=== PATIENT | female | born 1955 | race Caucasian/White ===

== ENCOUNTER 2023-12-08 13:20 | Emergency (ER) | payer OTHER, SELFPAY ==
--- NOTE | ~2023-12-08 | XR_ITS ---
XR chest 2V Ordering provider: TYRONE Ken History: 68 years Female with . cough, fever x3 weeks, sob, hx asthma . Comparison: None. FINDINGS: MEDIASTINUM: The cardiac silhouette is not enlarged. LUNGS: No infiltrates, effusions or pneumothorax. Opacification in the posterior costophrenic angles is seen which may indicate atelectasis. OTHER: No free air under the diaphragm. IMPRESSION: Opacification in the posterior costophrenic angles which may indicate atelectasis versus pneumonia. C linical correlation advised. Reviewed, dictated and finalized at location A. IMPRESSION: Opacification in the posterior costophrenic angles which may indicate atelectas is versus pneumonia. Clinical correlation advised.
[2023-12-08 13:28] VITALS: BP 127/68; PULSE 77; RESP 18; TEMP 36.3; O2SAT 96
[2023-12-08 13:42] VITALS: BP 127/68; PULSE 77; RESP 18; TEMP 36.3; O2SAT 96
--- NOTE | 2023-12-08 13:51 | ED.URI ---
HPI - URI/Sore Throat General Chief Complaint: Upper Respiratory Infection Stated Complaint: Shortness of Breath/Cough/Fever Time Seen by Provider: 12/08/23 13:44 Source: patient and RN notes reviewed Mode of arrival: ambulatory Limitations: no limitations History of Present Illness HPI Narrative: Patient presents today with a 3 week history of cough, nasal congestion, shortness of breath with exertion. Patient also reports she has a fever every night with a T-max of 102.9?. Last fever was last evening. She has been using Tylenol and her inhalers with mild relief. History of 3 sinus surgeries in the past as well as asthma. Related Data Home Medications Medication Instructions Recorded Confirmed allopurinol 300 mg tablet mg 12/08/23 atorvastatin 20 mg tablet mg 12/08/23 budesonide-formoterol HFA 160 inhalation 12/08/23 mcg-4.5 mcg/actuation aerosol inhaler celecoxib 100 mg capsule mg 12/08/23 montelukast 10 mg tablet mg 12/08/23 Allergies Allergy/AdvReac Type Severity Reaction Status Date / Time No Known Allergies Allergy Unverified 12/08/23 13:31 Review of Systems Review of Systems: CONSTITUTIONAL: Denies body aches, chills, or sweats.+ fever EYES: Denies visual changes, redness, or discharge. ENT: Denies rhinorrhea, sore throat, or otalgia.+ congestion CARDIOVASCULAR: Denies chest pain, palpitations, or edema. RESPIRATORY: + cough, shortness of breath GASTROINTESTINAL: Denies abdominal pain, nausea, vomiting, or diarrhea. GENITOURINARY: Denies dysuria or hematuria. SKIN: Denies rash, itching, or wounds. MUSCULOSKELETAL: Denies back pain, joint pain, or myalgia. NEUROLOGIC: Denies headache, numbness, tingling, or weakness. PSYCH: Denies depression or anxiety. [facility] Past Medical History Medical History (Updated 12/08/23 @ 14:31 by Deidra Springer, BOBBIN PRESSER, ) Asthma Comments At time of signature, I have reviewed and agree with nursing past medical, surgical, social and family history unless otherwise noted. Please see nursing chart for further information. There is no relevant family history pertinent to the presenting complaint Exam Narrative: GENERAL: Mildly ill-appearing, well-nourished, and in no acute distress. HEAD: Normocephalic, atraumatic. EYES: EOMI. No redness or drainage. Conjunctivae normal. ENT: Mucous membranes pink and moist. Nares congested. No rhinorrhea. TMs normal bilaterally. Throat normal. Uvula midline. NECK: Normal AROM. Supple. No lymphadenopathy. CHEST: No respiratory distress. Inspiratory and expiratory wheezes throughout. HEART: Regular rate and rhythm. No murmur appreciated. EXTREMITIES: Normal range of motion. No edema. SKIN: Warm, dry, no rash. Capillary refill normal. Normal skin turgor. NEURO: No focal deficits. Alert and oriented x3. Gait steady. PSYCH: Normal affect. No signs of depression or anxiety. Course Course Level of Care: Express Care Visit Vital Signs Vital signs: Vital Signs Temperature 97.4 F L 12/08/23 13:28 Pulse Rate 77 12/08/23 13:28 Respiratory Rate 18 12/08/23 13:28 Blood Pressure 127/68 12/08/23 13:28 Pulse Oximetry 96 12/08/23 13:28 Oxygen Delivery Room Air 12/08/23 13:28 Temperature 97.4 F L 12/08/23 13:42 Pulse Rate 77 12/08/23 13:42 Respiratory Rate 18 12/08/23 13:42 Blood Pressure 127/68 12/08/23 13:42 Pulse Oximetry 96 12/08/23 13:42 Oxygen Delivery Room Air 12/08/23 13:42 Reviewed MDM - URI/Sore Throat MDM Narrative Medical decision making narrative: X-ray shows atelectasis versus pneumonia. Based on patient's symptoms and persistent fever, prescriptions for Augmentin and azithromycin will cover for pneumonia as well as prednisone for asthma exacerbation and cough. Patient declines prescription for cough medicine. Instructed to use nebulizer treatments for her wheezing and cough. ED precautions given. Differential Diagnosis Differential diagnosis
== END 2023-12-08 14:38 | disposition home or self-care (01) ==
PROVIDERS: Emergency Provider Nurse Practitioner; PCP Family Medicine
DX: J18.9 Pneumonia, unspecified organism (principal); J45.909 Unspecified asthma, uncomplicated
CPT/HCPCS: 71046; 99213; G0463

== ENCOUNTER 2025-02-27 13:24 | Emergency (ER) | payer OTHER, SELFPAY ==
[2025-02-27 13:36] VITALS: BP 132/62; PULSE 65; RESP 16; TEMP 36.6; O2SAT 99
--- OUTSIDE RECORDS SUMMARY | 2025-02-27 14:23 | XMS_ITS | Encounter Summary ---
Author Organization [facility] Address [address] [place] [address] Phone Care Team Providers Care Postal Support Employee Name Role Phone Brad Rivera MD Primary Care Provider [phone] Efrem Curtis MD Unavailable Rose Marie Hoang APRN, SIMULATION SOFTWARE ENGINEER Unavailable Mohamud Carrion MD Unavailable [phone] Reason for Visit * Reason Comments Medication Refill Encounter Details Date Type Department Care Team (Late st Contact Info) Description 04/10/2021 [facility]ill [facility] - [facility] [address] [place] [phone] Brad Rivera MD [address] [address] Medication Refill Social History Tobacco Use Types Packs/Day Years Used Date Smoking Tobacco: Never Smokeless Tobacco: Never Alcohol Use Standard Drinks/Week Comments Yes 0 (1 standard drink = 0.6 oz pur e alcohol) occasionally PHQ-2 Answer Date Recorded PHQ-2 Score 0 11/14/2018 Education Answer Date Recorded What is the highest level of school you have completed or the highest degree you have received? Bachelor's degree (e.g., BA, AB, BS) 11/03/2019 Comments No Sex and Gender Information Value Date Recorded Sex Assigned at Female 06/08/2023 2:00 AM CDT Legal Sex Female 7:51 PM CDT Gender Identity Female 01/16/2023 10:01 AM BUGGY RUNNER Sexual Orientation Straight 01/16/2023 10 :01 AM BUGGY RUNNER COVID-19 Exposure Response Date Recorded In the last month, have you been in contact with someone who was confirmed or suspected to have Coronavirus / COVID-19? Yes 04/02/2021 7:58 AM BUGGY RUNNER documented as of this encounter Miscellaneous Notes * Telephone Encounter - Katina Palm RN - 04/12/2021 10:44 AM CST PRN medication requires review from provider Per nursing clinical judgement, provider to review and approve the medication(s) order(s) if appropriate. Requested Prescriptions Pending Prescriptions Disp Refills albuterol 108 (90 Base) MCG/ACT Aerosol Solution [Pharmacy Med Name: ALBUTEROL HFA INH(200 PUFFS)18GM] 18 g 1 Sig: INHALE 1 TO 2 PUFFS BY MOUTH EVERY 6 HOURS NEEDED FOR COUGH Short Acting Inhaled Beta-Agonists Protocol Passed - 04/10/2021 10:15 PM Passed - Visit with relevant provider in past 12 months or upcoming 90 days Recent Visits Date Type Provider Dept 03/18/21 Telemedicine Farooq Sánchez APRN, BALAJI [facility] [place] 12/28/20 Telemedicine Farooq Sánchez APRN, BALAJI [facility] [place] Showing recent visits within past 365 days and meeting all other requirements Future Appointments Date Type Provider Dept 06/17/21 Appointment Brad Rivera MD [facility] [place] Showing future appointments within next 90 days and meeting all other requirements Y RUNNER documented in this encounter Plan of Treatment Upcoming Encounters Date Type Department Care Team (Late st Contact Info) Description 05/08/2025 1:45 PM BUGGY RUNNER Office Visit [facility] - [facility] - [place] [address] [place] [address] Mohamud Carrion MD [address] [place] [address] [place] [phone] 07/08/2025 1:30 PM CDT Office Visit [facility] - Family Medicine - Supply [address] [place] [address] Brad Rivera MD #[address] [address] 07/16/2025 1:00 PM CDT Office Visit [facility] - Ear, Nose & Throat - Supply #2 [place] [phone] Mohamud Carrion MD #[address] [address] documented as of this encounter Visit Diagnoses Not on filedocumented in this encounter Additional Health Concerns Infection Onset Date Last Indicated Resolved Time COVID - 19 Confirmed 04/02/2021 04/02/2021 022 12:16 AM BUGGY RUNNER COVID - 19 11/10/2021 11/10/2021 11/10/2021 8:55 AM CDT Respiratory Rule Out - RPA 11/10/2021 11/10/2021 0 11/10/2021 3:19 PM CDT Assessment Noted Time PHQ-9 Depression Total Score: 0 07/28/19 19 2:14 PM CDT documented as of this encounter Care Teams Postal Support Employee Relationship Specialty Start Date End Date Brad Rivera MD [address] [address] PCP - General Family Medicine 01/30/15 Efrem Curtis MD [address] [place] [address] Consulting Physician Pulmonary Disease 12/13/21 Rose Marie Hoang APRN, SIMULATION SOFTWARE ENGINEER [address] [place] [address] Nurse Practitioner Advanced Practice Nurse 01/23/23 Mohamud Carrion MD [address] [facility] [place] [address] [address] Consulting Physician Otolaryngology 11/20/24 documented as of this encounter
--- OUTSIDE RECORDS SUMMARY | 2025-02-27 14:23 | XMS_ITS | Encounter Summary ---
Author Organization [facility] Address [address] [place] [address] Phone Care Team Providers Care Heel Painter Name Role Phone Brad Rivera MD Primary Care Provider [phone] Efrem Curtis MD Unavailable Rose Marie Hoang APRN, VACUUM WORKER Unavailable Mohamud Carrion MD Unavailable [phone] Reason for Visit * Reason Comments Medication Refill Encounter Details Date Type Department Care Team (Late st Contact Info) Description 07/15/2023 Refill [facility] [address] [place] [phone] Brad Rivera MD #[address] [address] Medication Refill Social History Tobacco Use Types Packs/Day Years Used Date Smoking Tobacco: Never Passive Smoke Exposure: Past Smokeless Tobacco: Never Alcohol Use Standard Drinks/Week Comments Yes 3 (1 standard drink = 0.6 oz pur e alcohol) occasionally [facility] Utilities Answer Date Recorded In the past 12 months has e electric, gas, oil, or water company threatened to shut off services in your home? No 06/15/2023 Social Connection and Isolation Panel Answer Date Recorded In a typical week, how many times do you talk on the phone with family, friends, or neighbors? More than three times a week 06/15/2023 How often do you get togethe r with friends or relatives? Three times a week 06/15/2023 How often do you attend chur ch or mormonism services? Never 06/15/2023 Do you belong to any clubs o r organizations such as latter day groups, unions, fraternal or athletic groups, or school groups? No 06/15/2023 How often do you attend meet ings of the clubs or organizations you belong to? Never 06/15/2023 Are you , , di vorced, , never , or living with a partner? 06/15/2023 AUDIT-C Answer Date Recorded Q1: How often do you have a drink containing alc ohol? 2-3 times a week 06/15/2023 Q2: How many drinks containi ng alcohol do you have on a typical day when you are drinking? 1 or 2 06/15/2023 Q3: How often do you have si x or more drinks on one occasion? Never 06/15/2023 Overall Financial Resource Strain (CARDIA) Answe r Date Recorded How hard is it for you to pa y for the very basics like food, housing, medical care, and heating? Not hard at all 06/15/2023 PHQ-2 Answer Date Recorded Total Score - Questions 1-9 0 09/0 08/2021 [facility] - Occupational Stress Questionnaire Answer Date Recorded Do you feel stress - tense, restless, nervous, or anxious, or unable to sleep at night because your mind is troubled all the time - these days? Only a little 06/15/2023 Exercise Vital Sign Answer Date Recorde d On average, how many days pe r week do you engage in moderate to strenuous exercise (like a brisk walk)? 4 days 06/15/2023 On average, how many minutes do you engage in exercise at this level? 30 min 06/15/2023 Hunger Vital Sign Answer Date Recorded Within the past 12 months, y ou worried that your food would run out before you got the money to buy more. Never true 06/15/19 24 Within the past 12 months, t he food you bought just didn't last and you didn't have money to get more. Never true 06/15/2023 PRAPARE - Transportation Answer Date Re corded In the past 12 months, has l ack of transportation kept you from medical appointments or from getting medications? No 06/2023 In the past 12 months, has l ack of transportation kept you from meetings, work, or from getting things needed for daily living? No 06/15/2023 Housing Stability Vital Sign Answer Trino e Recorded In the last 12 months, was t here a time when you were not able to pay the mortgage or rent on time? No 06/15/2023 In the last 12 months, how many places have you lived? 1 06/15/2023 In the last 12 months, was t here a time when you did not have a steady place to sleep or slept in a senior living (including now)? No 06/15/2023 Education Answer Date Recorded What is the highest level of school you have completed or the highest degree you have received? Bachelor's degree (e.g., BA, AB, BS) 11/03/2019 Sexually Active Control Partners Comments Not Currently Abstinence, Post-menopausal Male Comments No Sex and Gender Information Value Date Recorded Sex Assigned at Female 06/08/2023 2:00 AM CDT Legal Sex Female 7:51 PM CDT Gender Identity Female 01/16/2023 10:01 AM SUSTAINABILITY COACH Sexual Orientation Straight 01/16/2023 10 :01 AM SUSTAINABILITY COACH documented as of this encounter Miscellaneous Notes * Telephone Encounter - Ema Miles RN - 07/15/2023 12:35 PM CDT PRN medication requires provider review. Per nursing clinical judgement, provider to review and approve the medication(s) order(s) if appropriate. Requested Prescriptions Pending Prescriptions Disp Refills albuterol 108 (90 Base) MCG/ACT Aerosol Solution [Pharmacy Med Name: ALBUTEROL HFA (PROVENTIL) INH] Sig: INHALE 1 TO 2 PUFFS EVERY 6 HOURS NEEDED FOR COUGH Short Acting Inhaled Beta-Agonists Protocol Passed - 07/15/2023 9:03 AM Passed - Visit with relevant provider in past 12 months or upcoming 90 days Recent Visits Date Type Provider Dept 06/15/23 Office Visit Brad Rivera MD [facility] [place] 01/26/23 Telemedicine Farooq Sánchez APRN, BALAJI [facility] 12/14/22 Office Visit Brad Rivera MD [facility] 11/02/22 Office Visit Farooq S[facility] Showing recent visits within past 365 days and meeting all other requirements Future Appointments Date Type Provider Dept 10/09/23 Appointment Brad Rivera MD [facility] [place] Showing future appointments within next 90 days and meeting all other requirements documented in this encounter Plan of Treatment Upcoming Encounters Date Type Department Care Team (Late st Contact Info) Description 05/08/2025 1:45 PM SUSTAINABILITY COACH Office Visit [facility] Medical [facility] - Ear, Nose & Throat - [place] [address] [place] [address] Mohamud Carrion MD #2 [facility] [address] [place] [address] 07/08/2025 1:30 PM CDT Office Visit [facility] Medical [facility] - Family Medicine - [place] #2 [facility] [place] [address] Brad Rivera MD #2 [facility] [address] [place] [address] 07/16/2025 1:00 PM CDT Office Visit [facility] - Ear, Nose & Throat - [place] #2 [facility] [place] [address] Mohamud Carrion MD #2 [facility] [address] [place] [address] documented as of this encounter Visit Diagnoses Not on filedocumented in this encounter Additional Health Concerns Assessment Noted Time PHQ-9 Depression Total Score: 0 11/17/19 22 12:00 PM CDT documented as of this encounter Care Teams Heel Painter Relationship Specialty Start Date End Date Brad Rivera MD #[address] [address] PCP - General Family Medicine 01/30/15 Efrem Curtis MD #2 [place] [phone] Consulting Physician Pulmonary Disease 12/13/21 Rose Marie Hoang APRN, VACUUM WORKER [address] [place] [address] Nurse Practitioner Advanced Practice Nurse 01/23/23 Mohamud Carrion MD #[address] [phone] Consulting Physician Otolaryngology 11/20/24 documented as of this encounter
--- OUTSIDE RECORDS SUMMARY | 2025-02-27 14:23 | XMS_ITS | Encounter Summary ---
Author Organization [facility] Address [address] [place] [address] Phone Care Team Providers Care Rocket Assembly Operator Name Role Phone Brad Rivera MD Primary Care Provider [phone] Efrem Curtis MD Unavailable Rose Marie Hoang APRN, PIPE STEM ALIGNER Unavailable Mohamud Carrion MD Unavailable [phone] Reason for Visit * Reason Comments Medication Refill Encounter Details Date Type Department Care Team (Late st Contact Info) Description 11/23/2022 [facility] #[address] [place] [phone] Brad Rivera MD #[address] [address] Medication Refill Social History Tobacco Use Types Packs/Day Years Used Date Smoking Tobacco: Never Smokeless Tobacco: Never Alcohol Use Standard Drinks/Week Comments Yes 0 (1 standard drink = 0.6 oz pur e alcohol) occasionally PHQ-2 Answer Date Recorded Total Score - Questions 1-9 0 08/2021 Education Answer Date Recorded What is the highest level of school you have completed or the highest degree you have received? Bachelor's degree (e.g., BA, AB, BS) 11/03/2019 Comments No Sex and Gender Information Value Date Recorded Sex Assigned at Female 06/08/2023 2:00 AM CDT Legal Sex Female 7:51 PM CDT Gender Identity Female 01/16/2023 10:01 AM MEAT BUTCHER Sexual Orientation Straight 01/16/2023 10 :01 AM MEAT BUTCHER COVID-19 Exposure Response Date Recorded In the last 10 days, have yo u been in contact with someone who was confirmed or suspected to have Coronavirus/COVID-19? No / Unsure 11/02/2022 4:22 PM CDT documented as of this encounter Miscellaneous Notes * Telephone Encounter - Ema Miles RN - 11/23/2022 12:43 PM CDT Medication failed the protocol, provider to review and approve the medication order if appropriate. Requested Prescriptions Pending Prescriptions Disp Refills meloxicam (MOBIC) 15 MG Tablet [Pharmacy Med Name: MELOXICAM 15MG TABLETS] 90 Tablet 0 Sig: Take 1 Tablet by mouth daily. NSAIDs Protocol Failed - 11/23/2022 11:21 AM Failed - Not delegated, patient not between 1 and 65 years of age Passed - Normal serum creatinine in past 12 months CREATININE, BLOOD Date Value Ref Range Status 08/10/2022 0.67 0.60 - 1.10 mg/dL Final Passed - Visit with relevant provider in past 12 months or upcoming 90 days Recent Visits Date Type Provider Dept 11/02/22 Office Visit Farooq Sánchez APRN, [facility] [place] 06/30/22 Office Visit Farooq Sánchez APRN, PIPE STEM ALIGNER [facility] 06/14/22 Office Visit Brad Rivera MD [facility] 12/14/21 Office Visit Farooq Sánchez APRN, PIPE STEM ALIGNER [facility] 12/13/21 Office Visit Efrem Curtis MD [facility] Showing recent visits within past 365 days and meeting all other requirements Future Appointments Date Type Provider Dept 12/14/22 Appointment Brad [facility] MD [facility] [place] Showing future appointments within next 90 days and meeting all other requirements Passed - No matching NSAID med order in past 45 days No matching medication orders between 10/09/2022 12:43 PM and 11/23/2022 12:43 PM Passed - AST less than 55 or ALT less than 90 in past 12 months SGOT (AST) Date Value Ref Range Status 08/10/2022 17 <=32 U/L Final SGPT (ALT) Date Value Ref Range Status 08/10/2022 18 <=41 U/L Final Passed - HGB greater than 10 or HCT greater than 30 in past 12 months HEMOGLOBIN (HGB) Date Value Ref Range Status 06/10/2022 12.3 12.0 - 15.8 g/dL Final HEMATOCRIT (HCT) Date Value Ref Range Status 06/10/2022 38.3 36.0 - 47.0 % Final documented in this encounter Plan of Treatment Upcoming Encounters Date Type Department Care Team (Late st Contact Info) Description 05/08/2025 1:45 PM MEAT BUTCHER Office Visit [facility] - Ear, Nose & Throat [facility] #2 [facility] [place] [address] Mohamud Carrion MD #2 [facility] [address] [place] [phone] 07/08/2025 1:30 PM CDT Office Visit [facility] Family Medicine [facility] #[address] [place] [address] Brad Rivera MD #2 [facility] [address] [place] [address] 07/16/2025 1:00 PM CDT Office Visit [facility] Ear, Nose & Throat [facility] #2 [facility] [place] [phone] Mohamud Carrion MD #2 [facility] [address] [place] [address] documented as of this encounter Visit Diagnoses Not on filedocumented in this encounter Additional Health Concerns Assessment Noted Time PHQ-9 Depression Total Score: 0 11/17/19 22 12:00 PM CDT documented as of this encounter Care Teams Rocket Assembly Operator Relationship Specialty Start Date End Date Brad Rivera MD #2 [facility] [address] [place] [address] PCP - General Family Medicine 01/30/15 Efrem Curtis MD #2 [place] [address] Consulting Physician Pulmonary Disease 12/13/21 Rose Marie Hoang APRN, PIPE STEM ALIGNER #[address] [place] [address] Nurse Practitioner Advanced Practice Nurse 01/23/23 Mohamud Carrion MD #2 [facility] [address] [place] [address] Consulting Physician Otolaryngology 11/20/24 documented as of this encounter
--- OUTSIDE RECORDS SUMMARY | 2025-02-27 14:23 | XMS_ITS | Encounter Summary ---
Author Organization [facility] Address [address] [place] [address] Phone Care Team Providers Care Audit Analyst Name Role Phone Brad Rivera MD Primary Care Provider [phone] Efrem Curtis MD Unavailable Rose Marie Hoang APRN, DIE ASSEMBLER Unavailable Mohamud Carrion MD Unavailable [phone] Reason for Visit * Reason Comments Medication Refill Encounter Details Date Type Department Care Team (Late st Contact Info) Description 10/19/2021 [facility]ill [facility] #2 [place] [address] Brad Rivera MD #[address] [address] Medication Refill Social History Tobacco Use Types [...] CDT Gender Identity Female 01/16/2023 10:01 AM RECOVERY ANALYST Sexual Orientation Straight 01/16/2023 10 :01 AM RECOVERY ANALYST COVID-19 Exposure Response Date Recorded In the last 10 days, have yo u been in contact with someone who was confirmed or suspected to have Coronavirus/COVID-19? No / Unsure 10/20/2021 9:46 AM CDT documented as of this encounter Miscellaneous Notes * Telephone Encounter - Katina Palm RN - 10/20/2021 9:33 AM CDT PRN medication requires review from provider Per [...] Short Acting Inhaled Beta-Agonists Protocol Passed - 10/19/2021 9:19 AM Passed - Visit with relevant provider in past 12 months or upcoming 90 days Recent Visits Date Type Provider Dept 09/28/21 Telemedicine Farooq Sánchez APRN, BALAJI [facility] [place] 03/18/21 Telemedicine Farooq Sánchez APRN, BALAJI [facility] 12/28/20 Telemedicine Farooq Sánchez APRN, BAL[facility] Showing recent visits within past 365 days and meeting all other requirements Future Appointments No visits were found meeting these conditions. Showing future appointments within next 90 days and meeting all other requirements documented in this encounter Plan of Treatment Upcoming Encounters Date Type Department Care Team (Late st Contact Info) Description 05/08/2025 1:45 PM RECOVERY ANALYST Office Visit [facility] - [facility] - [place] [address] [place] [address] Mohamud Carrion MD [address] [address] 07/08/2025 1:30 PM CDT Office Visit [facility] - Family Medicine - [place] [address] [place] [address] Brad Rivera MD [address] [address] 07/16/2025 1:00 PM CDT Office Visit [facility] - Ear, Nose & Throat - [place] #2 [facility] [place] [address] Mohamud Carrion MD #2 [facility] [address] [address] documented as of this encounter Visit Diagnoses Not on filedocumented in this encounter Additional Health Concerns Infection Onset Date Last Indicated Resolved Time COVID - 19 11/10/2021 11/10/2021 11/10/2021 8:55 AM CDT Respiratory Rule Out - RPA 11/10/2021 11/10/2021 0 11/10/2021 3:19 PM CDT Assessment Noted Time PHQ-9 Depression Total Score: 0 07/28/19 19 2:14 PM CDT documented as of this encounter Care Teams Audit Analyst Relationship Specialty Start Date End Date Brad Rivera MD [address] [address] PCP - General Family Medicine 01/30/15 Efrem Curtis MD #[address] [place] [address] Consulting Physician Pulmonary Disease 12/13/21 Rose Marie Hoang APRN, DIE ASSEMBLER #[address] [place] [address] Nurse Practitioner Advanced Practice Nurse 01/23/23 Mhoamud Carrion MD [address] [place] [address] [address] [address] Consulting Physician Otolaryngology 11/20/24 documented as of this encounter
--- OUTSIDE RECORDS SUMMARY | 2025-02-27 14:23 | XMS_ITS | Encounter Summary ---
Author Organization [facility] Address [address] [place] [address] Phone Care Team Providers Care Director Of Business Systems Name Role Phone Brad Rivera MD Primary Care Provider [phone] Efrem Curtis MD Unavailable Rose Marie Hoang APRN, SHANK INSPECTOR Unavailable Mohamud Carrion MD Unavailable [phone] Reason for Visit * Reason Comments Medication Refill Encounter Details Date Type Department Care Team (Late st Contact Info) Description 02/07/2022 Refill [facility] #2 [place] [address] Brad Rivera MD #[address] [address] Medication Refill Social History Tobacco Use Types Packs/Day Years Used Date Smoking Tobacco: Never Smokeless Tobacco: Never Alcohol Use Standard Drinks/Week Comments Yes 0 (1 standard drink = 0.6 oz pur e alcohol) occasionally PHQ-2 Answer Date Recorded Total Score - Questions 1-9 0 09/0 08/2021 Education Answer Date Recorded What is the highest level of school you have completed or the highest degree you have received? Bachelor's degree (e.g., BA, AB, BS) 11/03/2019 Comments No Sex and Gender Information Value Date Recorded Sex Assigned at Female 06/08/2023 2:00 AM CDT Legal Sex Female 7:51 PM CDT Gender Identity Female 01/16/2023 10:01 AM SPANISH INSTRUCTOR Sexual Orientation Straight 01/16/2023 10 :01 AM SPANISH INSTRUCTOR documented as of this encounter Miscellaneous Notes * Telephone Encounter - Doreen Elmore RN - 02/08/2022 8:21 AM SPANISH INSTRUCTOR Refilled 02/08/2022 ISH INSTRUCTOR documented in this encounter Plan of Treatment Upcoming Encounters Date Type Department Care Team (Late st Contact Info) Description 05/08/2025 1:45 PM SPANISH INSTRUCTOR Office Visit [facility] - Ear, Nose & Throat [facility] #2 [facility] [place] [address] Mohamud Carrion MD #2 [facility] [address] [place] [address] 07/08/2025 1:30 PM CDT [facility] Visit [facility] - Family Medicine - [place] #2 [place] [address] Brad Rivera MD #2 [facility] [address] [place] [address] 07/16/2025 1:00 PM CDT Office Visit [facility] Ear, Nose & Throat [facility] #2 [facility] [place] [address] Mohamud Carrion MD #[address] [address] documented as of this encounter Visit Diagnoses Not on filedocumented in this encounter Additional Health Concerns Assessment Noted Time PHQ-9 Depression Total Score: 0 11/17/19 22 12:00 PM CDT documented as of this encounter Care Teams Director Of Business Systems Relationship Specialty Start Date End Date Brad Rivera MD #[address] [address] PCP - General Family Medicine 01/30/15 Efrem Curtis MD #2 [place] [address] Consulting Physician Pulmonary Disease 12/13/21 Rose Marie Hoang APRN, SHANK INSPECTOR #2 [place] [address] Nurse Practitioner Advanced Practice Nurse 01/23/23 Mohamud Carrion MD #[address] [phone] Consulting Physician Otolaryngology 11/20/24 documented as of this encounter
--- OUTSIDE RECORDS SUMMARY | 2025-02-27 14:23 | XMS_ITS | Encounter Summary ---
Author Organization [facility] Address [address] [place] [address] Phone Care Team Providers Care Archivist Nonprofit Foundation Name Role Phone Brad Rivera MD Primary Care Provider [phone] Efrem Curtis MD Unavailable Rose Marie Hoang APRN, KNOCKDOWN WORKER Unavailable Mohamud Carrion MD Unavailable [phone] Reason for Visit * Reason Comments Medication Refill Encounter Details Date Type Department Care Team (Late st Contact Info) Description 01/27/2024 Refill [facility] #2 [place] [address] Farooq Sánchez, MAME, KNOCKDOWN WORKER #[address] [address] Medication Refill Social History Tobacco Use Types Packs/Day Years Used Date Smoking Tobacco: Never Passive Smoke Exposure: Past Smokeless Tobacco: Never Alcohol Use Standard Drinks/Week Comments Yes 3 (1 standard drink = 0.6 oz pur e alcohol) occasionally [facility] Utilities Answer Date Recorded In the past 12 months has e electric, gas, oil, or water company threatened to shut off services in your home? No 01/23/2024 Social Connection and Isolation Panel Answer Date Recorded In a typical week, how many times do you talk on the phone with family, friends, or neighbors? More than three times a week 01/23/2024 How often do you get togethe r with friends or relatives? More than three times a week 01/23/2024 How often do you attend [facility] or religion services? Patient declined 01/23/2024 Do you belong to any clubs o r organizations such as jewish groups, unions, fraternal or athletic groups, or school groups? Yes 01/23/2024 How often do you attend meet ings of the clubs or organizations you belong to? 1 to 4 times per year 01/23/2024 Are you , , di vorced, , never , or living with a partner? 01/23/2024 AUDIT-C Answer Date Recorded Q1: How often do you have a drink containing alc ohol? 2-3 times a week 01/23/2024 Q2: How many drinks containi ng alcohol do you have on a typical day when you are drinking? 1 or 2 01/23/2024 Q3: How often do you have si x or more drinks on one occasion? Never 01/23/2024 Overall Financial Resource Strain (CARDIA) Answe r Date Recorded How hard is it for you to pa y for the very basics like food, housing, medical care, and heating? Not hard at all 01/23/2024 PHQ-2 Answer Date Recorded Total Score - Questions 1-9 0 09/0 08/2021 [facility] of Occupat ional Health - Occupational Stress Questionnaire Answer Date Recorded Do you feel stress - tense, restless, nervous, or anxious, or unable to sleep at night because your mind is troubled all the time - these days? Only a little 01/23/2024 Exercise Vital Sign Answer Date Recorde d On average, how many days pe r week do you engage in moderate to strenuous exercise (like a brisk walk)? 5 days 01/23/2024 On average, how many minutes do you engage in exercise at this level? 30 min 01/23/2024 Hunger Vital Sign Answer Date Recorded Within the past 12 months, y ou worried that your food would run out before you got the money to buy more. Never true 01/23/20 24 Within the past 12 months, t he food you bought just didn't last and you didn't have money to get more. Never true 01/23/2024 PRAPARE - Transportation Answer Date Re corded In the past 12 months, has l ack of transportation kept you from medical appointments or from getting medications? No 01/11 In the past 12 months, has l ack of transportation kept you from meetings, work, or from getting things needed for daily living? No 01/23/2024 Housing Stability Vital Sign Answer Trino e [...] place to sleep or slept in a snf (including now)? No 06/15/2023 Housing Stability Vital Sign Answer Trino e Recorded In the last 12 months, was t here a time when you were not able to pay the mortgage or rent on time? No 01/23/2024 Number of Times Moved in the Last Year Not on fi le 01/23/2024 At any time in the past 12 m [facility], were you homeless or living in a snf (including now)? No 01/23/2024 Education Answer Date Recorded What is the [...] CDT Gender Identity Female 01/16/2023 10:01 AM AUTOMATIC PAD MAKING MACHINE OPERATOR Sexual Orientation Straight 01/16/2023 10 :01 AM AUTOMATIC PAD MAKING MACHINE OPERATOR documented as of this encounter Miscellaneous Notes * Telephone Encounter - Ema Miles RN - 01/27/2024 5:12 PM AUTOMATIC PAD MAKING MACHINE OPERATOR Celecoxib not active on med list MATIC PAD MAKING MACHINE OPERATOR documented in this encounter Plan of Treatment Upcoming Encounters Date Type Department Care Team (Late st Contact Info) Description 05/08/2025 1:45 PM AUTOMATIC PAD MAKING MACHINE OPERATOR Office Visit [facility] Ear, Nose & Throat [facility] [address] [address] Mohamud Carrion MD [address] [place] [address] [place] [address] 07/08/2025 1:30 PM CDT Office Visit [facility] Family [facility] #2 [place] [address] Brad Rivera MD [address] [address] 07/16/2025 1:00 PM CDT Office Visit [facility] Ear, Nose & Throat [facility] #2 [facility] [place] [address] Mohamud Carrion MD #2 [facility] [address] [place] [address] documented as of this encounter Visit Diagnoses Not on filedocumented in this encounter Additional Health Concerns Assessment Noted Time PHQ-9 Depression Total Score: 0 11/17/19 22 12:00 PM CDT documented as of this encounter Care Teams Archivist Nonprofit Foundation Relationship Specialty Start Date End Date Brad Rivera MD #[address] [address] PCP - General Family Medicine 01/30/15 Efrem Curtis MD #[address] [place] [address] Consulting Physician Pulmonary Disease 12/13/21 Rose Marie Hoang APRN, KNOCKDOWN WORKER #[address] [place] [address] Nurse Practitioner Advanced Practice Nurse 01/23/23 Mohamud Carrion MD [address] [place] [address] [address] Consulting Physician Otolaryngology 11/20/24 documented as of this encounter
--- OUTSIDE RECORDS SUMMARY | 2025-02-27 14:23 | XMS_ITS | Encounter Summary ---
Author Organization [facility] Address [address] [place] [address] Phone Care Team Providers Care Skimmer Reverberatory Name Role Phone Brad Rivera MD Primary Care Provider [phone] Efrem Curtis MD Unavailable Rose Marie Hoang APRN, CNP Unavailable Mohamud Carrion MD Unavailable [phone] Encounter Details Date Type Department Care Team (Late st Contact Info) Description 02/21/2025 Telephone [facility] - Ear, Nose & Throat - [place] #[address] [place] [address] Mohamud Carrion MD [address] [place] [address] [address] Social History Tobacco Use Types Packs/Day Years Used Date Smoking Tobacco: Never Passive Smoke Exposure: Past Smokeless Tobacco: Never Alcohol Use Standard Drinks/Week Comments Yes 3 (1 standard drink = 0.6 oz pur e alcohol) occasionally [facility] Utilities Answer Date Recorded In the past 12 months has e electric, gas, oil, or water company threatened to shut off services in your home? No 05/28/2024 Social Connection and Isolation Panel Answer Date Recorded In a typical week, how many times do you talk on the phone with family, friends, or neighbors? Once a week 05/28/2024 How often do you get togethe r with friends or relatives? More than three times a week 05/28/2024 How often do you attend chur ch or yazdanism services? Never 05/28/2024 Do you belong to any clubs o r organizations such as spiritism groups, unions, fraternal or athletic groups, or school groups? Yes 05/28/2024 How often do you attend meet ings of the clubs or organizations you belong to? More than 4 times per year 05/28/2024 Are you , , di vorced, , never , or living with a partner? 05/28/2024 AUDIT-C Answer Date Recorded Q1: How often do you have a drink containing alc ohol? 2-3 times a week 05/28/2024 Q2: How many drinks containi ng alcohol do you have on a typical day when you are drinking? 1 or 2 05/28/2024 Q3: How often do you have si x or more drinks on one occasion? Less than monthly 05/28/2024 Overall Financial Resource Strain (CARDIA) Answe r Date Recorded How hard is it for you to pa y for the very basics like food, housing, medical care, and heating? Not hard at all 05/28/2024 PHQ-2 Answer Date Recorded Total Score - Questions 1-9 0 03/13 [facility] of Occupat ional Health - Occupational Stress Questionnaire Answer Date Recorded Do you feel stress - tense, restless, nervous, or anxious, or unable to sleep at night because your mind is troubled all the time - these days? Only a little 05/28/2024 Exercise Vital Sign Answer Date Recorde d On average, how many days pe r week do you engage in moderate to strenuous exercise (like a brisk walk)? 3 days 05/28/2024 On average, how many minutes do you engage in exercise at this level? 30 min 05/28/2024 Hunger Vital Sign Answer Date Recorded Within the past 12 months, y ou worried that your food would run out before you got the money to buy more. Never true 05/29/19 25 Within the past 12 months, t he food you bought just didn't last and you didn't have money to get more. Never true 05/28/2024 PRAPARE - Transportation Answer Date Re corded In the past 12 months, has l ack of transportation kept you from medical appointments or from getting medications? No 05/11 In the past 12 months, has l ack of transportation kept you from meetings, work, or from getting things needed for daily living? No 05/28/2024 Housing Stability Vital Sign Answer Trino e [...] place to sleep or slept in a chcf (including now)? No 06/15/2023 Housing Stability Vital Sign Answer Trino e Recorded In the last 12 months, was t here a time when you were not able to pay the mortgage or rent on time? No 05/28/2024 In the past 12 months, how m any times have you moved where you were living? 0 05/28/2024 At any time in the past 12 m [facility], were you homeless or living in a chcf (including now)? No 05/28/2024 Education Answer Date Recorded What is the [...] CDT Gender Identity Female 01/16/2023 10:01 AM ANAESTHETIC TECHNICIAN Sexual Orientation Straight 01/16/2023 10 :01 AM ANAESTHETIC TECHNICIAN documented as of this encounter Miscellaneous Notes * Telephone Encounter - Gladys Berry RN - 02/21/2025 8:15 AM CST Surgical order received from Dr. Carrion. Booking form completed and set on Dr. Mccullough's desk for review and signature. Post-op visit scheduled on , 07/16/2025 and patient aware. Updated order to include surgery date on 04/15/2025. [employer] cycle team to obtain authorization. Medical clearance to be sent to Dr. Rivera within 30 days of scheduled surgery. STHETIC TECHNICIAN documented in this encounter Plan of Treatment Upcoming Encounters Date Type Department Care Team (Late st Contact Info) Description 05/08/2025 1:45 PM ANAESTHETIC TECHNICIAN [facility] Visit [facility] - Ear, Nose & Throat - [place] #2 [facility] [address] [facility] [place] [address] Mohamud Carrion MD #[address] [place] [address] 07/08/2025 1:30 PM CDT Office Visit [facility] - Family [facility] - [place] #2 [facility] [place] [address] Brad Rivera MD #[address] [place] [address] 07/16/2025 1:00 PM CDT Office Visit [facility] Ear, Nose & Throat - [place] #2 [facility] [place] [facility] [place] [place] [address] Mohamud Carrion MD #[address] [place] [address] documented as of this encounter Visit Diagnoses Not on filedocumented in this encounter Additional Health Concerns Assessment Noted Time PHQ-9 Depression Total Score: 0 03/27/19 1:47 PM ANAESTHETIC TECHNICIAN documented as of this encounter Care Teams Skimmer Reverberatory Relationship Specialty Start Date End Date Brad Rivera MD #[address] [place] [address] PCP - General Family Medicine 01/30/15 Efrem Curtis MD #2 [facility] [place] [address] Consulting Physician Pulmonary Disease 12/13/21 Rose Marie Hoang APRN, WELDER MACHINE OPERATOR #2 [place], [place] [phone] Nurse Practitioner Advanced Practice Nurse 01/23/23 Mohamud Carrion MD #2 [facility] [address] [address] Consulting Physician Otolaryngology 11/20/24 documented as of this encounter
--- OUTSIDE RECORDS SUMMARY | 2025-02-27 14:23 | XMS_ITS | Encounter Summary ---
Author Organization [facility] Address [address] [place] [address] Phone Care Team Providers Care [place] Worker Name Role Phone Brad Rivera MD Primary Care Provider [phone] Efrem Curtis MD Unavailable Rose Marie Hoang APRN, TRANSPORTATION REFRIGERATION TECHNICIAN Unavailable Mohamud Carrion MD Unavailable [phone] Reason for Visit * Reason Comments Medication Refill Encounter Details Date Type Department Care Team (Late st Contact Info) Description 10/07/2021 Refill [facility] Family [facility] #2 [place] [address] Farooq Sánchez, MAME, TRANSPORTATION REFRIGERATION TECHNICIAN #[address] [address] Medication Refill Social History Tobacco Use Types [...] CDT Gender Identity Female 01/16/2023 10:01 AM LITHOGRAPHIC CAMERA OPERATOR Sexual Orientation Straight 01/16/2023 10 :01 AM LITHOGRAPHIC CAMERA OPERATOR COVID-19 Exposure Response Date Recorded In the last 10 days, have yo u been in contact with someone who was confirmed or suspected to have Coronavirus/COVID-19? No / Unsure 09/28/2021 2:00 PM CDT documented as of this encounter Plan of Treatment Upcoming Encounters Date Type Department Care Team (Late st Contact Info) Description 05/08/2025 1:45 PM LITHOGRAPHIC CAMERA OPERATOR Office Visit [facility] Ear, Nose & Throat [facility] #2 [place] [address] Mohamud Carrion MD #[address] [address] 07/08/2025 1:30 PM CDT Office Visit [facility] Family Medicine - [place] #2 [place] [address] Brad Rivera MD #2 [facility] [address] [place] [address] 07/16/2025 1:00 PM CDT Office Visit [facility] Ear, Nose & Throat - [place] #2 [place] [address] Mohamud Carrion MD #[address] [address] documented as of this encounter Visit Diagnoses Diagnosis Mild intermittent asthma with exacerbation Unspecified asthma, with exacerbation documented in this encounter Additional Health Concerns Infection Onset Date Last Indicated Resolved Time COVID - 19 11/10/2021 11/10/2021 11/10/2021 8:55 AM CDT Respiratory Rule Out - RPA 11/10/2021 11/10/2021 0 11/10/2021 3:19 PM CDT Assessment Noted Time PHQ-9 Depression Total Score: 0 07/28/19 19 2:14 PM CDT documented as of this encounter Care Teams [place] Worker Relationship Specialty Start Date End Date Brad Rivera MD #2 [facility] [address] [place] [address] PCP - General Family Medicine 01/30/15 Efrem Curtis MD #2 [place] [phone] Consulting Physician Pulmonary Disease 12/13/21 Rose Marie Hoang APRN, TRANSPORTATION REFRIGERATION TECHNICIAN #2 [place] [address] Nurse Practitioner Advanced Practice Nurse 01/23/23 Mohamud Carrion MD #[address] [address] Consulting Physician Otolaryngology 11/20/24 documented as of this encounter
--- OUTSIDE RECORDS SUMMARY | 2025-02-27 14:23 | XMS_ITS | Encounter Summary ---
Author Organization [facility] Address [address] [place] [address] Phone Care Team Providers Care Guest Service Agent Name Role Phone Brad Rivera MD Primary Care Provider [phone] Efrem Curtis MD Unavailable Rose Marie Hoang APRN, ONLINE PROJECT MANAGER Unavailable Mohamud Carrion MD Unavailable [phone] Encounter Details Date Type Department Care Team (Late st Contact Info) Description 11/18/2021 Lab Requisition [facility] [address] [place] [phone] Brad Rivera MD [address] [address] Acute respiratory failure, unspecified whether with hypoxia or hypercapnia (HCC) Social History Tobacco Use Types Packs/Day Years [...] CDT Gender Identity Female 01/16/2023 10:01 AM [employer] Sexual Orientation Straight 01/16/2023 10 :01 AM [employer] COVID-19 Exposure Response Date Recorded In the last 10 days, have yo u been in contact with someone who was confirmed or suspected to have Coronavirus/COVID-19? No / Unsure 11/15/2021 3:48 PM CDT documented as of this encounter Functional Status * BP Answer Date of Assessment Author 114/68 11/18/2021 3:24 PM CDT Benjamin Gabriel RN * Temp Answer Date of Assessment Author 97.3 11/18/2021 3:24 PM CDT Benjamin Gabriel, KATHARINA * Pulse Answer Date of Assessment Author 72 11/18/2021 3:24 PM CDT Benjamin Gabriel RN * Resp Answer Date of Assessment Author 20 11/18/2021 3:24 PM CDT Benjamin Gabriel RN * SpO2 Answer Date of Assessment Author 95 11/18/2021 3:24 PM CDT Benjamin Gabriel RN documented as of this encounter Mental Status * BP Answer Entry Date Author 114/68 11/18/2021 3:24 PM CDT Benjamin Gabriel RN * Temp Answer Entry Date Author 97.3 11/18/2021 3:24 PM CDT Benjamin Gabriel RN * Pulse Answer Entry Date Author 72 11/18/2021 3:24 PM CDT Benjamin Gabriel, RN * SpO2 Answer Entry Date Author 95 11/18/2021 3:24 PM CDT Benjamin Gabriel RN documented in this encounter Plan of Treatment Upcoming Encounters Date Type Department Care Team (Late st Contact Info) Description 05/08/2025 1:45 PM [employer] Office Visit [facility] - [place] [address] [place] [phone] Mohamud Carrion MD [address] [facility] [place] [address] [place] [phone] 07/08/2025 1:30 PM CDT Office Visit [facility] - [place] [address] [facility] [place] [phone] Brad Rivera MD #2 [facility] [address] [place] [address] 07/16/2025 1:00 PM CDT Office Visit [facility] - [place] [address] [facility] [place] [phone] Mohamud Carrion MD [address]2 [facility] [address] [place] [phone] documented as of this encounter Procedures Procedure Name Priority Date/Time Associated Diagnosis Comments CBC WITH AUTO DIFFERENTIAL Routine 11/18/2021 4:00 PM CDT Acute respiratory failure, unspecified whether with hypoxia or hypercapnia (HCC) COMPLETE BLOOD COUNT (CBC) WITH DIFF Routine 11/18/2021 4:00 PM CDT Acute respiratory failure, unspecified whether with hypoxia or hypercapnia (HCC) BASIC METABOLIC PANEL W/ CALCIUM TOTAL Routine 11/18/2021 4:00 PM CDT Acute respiratory failure, unspecified whether with hypoxia or hypercapnia (HCC) documented in this encounter Results * (ABNORMAL) CBC WITH AUTO DIFFERENTIAL (11/18/2021 4:00 PM CDT) WBC 13.04(H) 4.00 - 12.00 10(3)/mcL 11/18/2021 6:48 PM CDT [facility] RBC 4.39 3.80 - 5.30 10(6)/mcL 11/18/2021 6:48 PM CDT [facility] HEMOGLOBIN (HGB) 13.5 12.0 - 15.8 g/dL 11/18/2021 6:48 PM CDT [facility] HEMATOCRIT (HCT) 41.3 36.0 - 47.0 % 11/18/2021 6:48 PM CDT [facility] MCV 94.1 82.0 - 96.0 fL 11/18/2021 6:48 PM CDT [facility] MCH 30.8 26.0 - 34.0 pg 11/18/2021 6:48 PM CDT [facility] MCHC 32.7 31.0 - 36.0 g/dL 11/18/2021 6:48 PM CDT [facility] PLATELET COUNT 377 140 - 440 10(3)/mcL 11/18/2021 6:48 PM CDT [facility] RDW 13.0 11.8 - 15.5 % 11/18/2021 6:48 PM CDT [facility] MPV 10.2 9.7 - 12.4 fL 11/18/2021 6:48 PM CDT [facility] NEUTROPHILS 88.1(H) 47.0 - 73.0 % 11/18/2021 6:48 PM CDT [facility] LYMPHOCYTES 10.0(L) 18.0 - 42.0 % 11/18/2021 6:48 PM CDT [facility] MONOCYTES 1.6(L) 4.0 - 12.0 % 11/18/2021 6:48 PM CDT [facility] EOSINOPHILS 0.0 0.0 - 5.0 % 11/18/2021 6:48 PM CDT [facility] BASOPHILS 0.3 0.0 - 1.0 % 11/18/2021 6:48 PM CDT [facility] ABSOLUTE NEUTROPHILS 11.49(H) 1.60 - 7.70 10(3)/mcL 11/18/2021 6:48 PM CDT [facility] ABSOLUTE LYMPHOCYTES 1.30 1.30 - 3.20 10(3)/mcL 11/18/2021 6:48 PM CDT [facility] ABSOLUTE MONOCYTES 0.21 0.20 - 1.00 10(3)/mcL 11/18/2021 6:48 PM CDT [facility] ABSOLUTE EOSINOPHIL 0.00 0.00 - 0.40 10(3)/mcL 11/18/2021 6:48 PM CDT [facility] ABSOLUTE BASOPHILS 0.04 0.00 - 0.10 10(3)/mcL 11/18/2021 6:48 PM CDT [facility] NRBC PER 100 WBC 0 11/19/19 6:48 PM CDT [facility] Blood No Phlebotomy Charged / Unknown 11/18/2021 4:00 PM CDT 11/18/2021 6:38 PM CDT [facility] Farhat Rivera MD HEMATOLOGY ORDERABLES Fin al Result [facility] [address] [place] [address] * (ABNORMAL) BASIC METABOLIC PANEL W/ CALCIUM TOTAL (11/18/2021 4:00 PM CDT) SODIUM 135(L) 136 - 144 mmol/L 11/18/2021 6:57 PM CDT [facility] POTASSIUM 4.5 3.5 - 5.1 mmol/L 11/18/2021 6:57 PM CDT [facility] CHLORIDE 97(L) 100 - 110 mmol/L 11/18/2021 6:57 PM CDT [facility] CO2, VENOUS 25 22 - 32 mmol/L 11/18/2021 6:57 PM CDT [facility] ANION GAP 17.5 8.0 - 20.0 mmol/L 11/18/2021 6:57 PM CDT [facility] GLUCOSE 137(H) 70 - 99 mg/dL 11/18/2021 6:57 PM CDT [facility] BUN 23 8 - 23 mg/dL 11/18/2021 6:57 PM CDT [facility] CREATININE, BLOOD 0.70 0.60 - 1.10 mg/dL 11/18/2021 6:57 PM CDT [facility] BUN/CREATININE RATIO 33(H) 12 - 20 ratio 11/18/2021 6:57 PM CDT [facility] CALCIUM 10.2 8.9 - 10.3 mg/dL 11/18/2021 6:57 PM CDT [facility] GFR, ESTIMATED >60 >=60 11/18/2021 6:57 PM CDT [facility] Comment: Creatinine Clearance is the preferred criteria for selecting drug dose adjustments in renally impaired patients. The GFR is provided as additional pertinent clinical information. GFR is reported in mL/min/1.73 sq m. Calculation based on the Chronic Kidney Disease Epidemiology Collaboration (CKD- EPI) equation refit without adjustment for race. GFR, EST. >60 >=60 022 6:57 PM CDT [facility] GFR, EST. NONAFRICAN >60 >=60 11/18/2021 6:57 PM CDT [facility] Blood No Phlebotomy Charged / Unknown 11/18/2021 4:00 PM CDT 11/18/2021 6:38 PM CDT Brad Rivera MD CHEMISTRY ORDERABLES Hoa l Result [facility] [address] [place] [address] documented in this encounter Visit Diagnoses Diagnosis Acute respiratory failure, unspecified whether with hypoxia or hypercapnia documented in this encounter Additional Health Concerns Assessment Noted Time PHQ-9 Depression Total Score: 0 11/17/19 22 12:00 PM CDT documented as of this encounter Care Teams Guest Service Agent Relationship Specialty Start Date End Date Brad Rivera MD [address] [address] PCP - General Family Medicine 01/30/15 Efrem Curtis MD [address] [place] [address] Consulting Physician Pulmonary Disease 12/13/21 Rose Marie Hoang APRN, ONLINE PROJECT MANAGER [address] [place], [place] [phone] Nurse Practitioner Advanced Practice Nurse 01/23/23 Mohamud Carrion MD #2 [facility] [address] [address] Consulting Physician Otolaryngology 11/20/24 documented as of this encounter
--- OUTSIDE RECORDS SUMMARY | 2025-02-27 14:23 | XMS_ITS | Clinical Summary ---
Author Organization [facility] Address [address] [place] [address] Phone Care Team Providers Care Customer Service Rep Name Role Phone Brad Rivera MD Primary Care Provider [phone] Efrem Curtis MD Unavailable Rose Marie Hoang APRN, PUMP PRESS OPERATOR Unavailable Mohamud Carrion MD Unavailable [phone] Allergies Active Allergy Reactions Criticality Noted Date Comments Vancomycin Hives Medium 09/28/2018 Medications allopurinol (ZYLOPRIM) 100 MG TabletIndication s:Idiopathic gout, unspecified chronicity, unspecified site Take 1 Tablet by mouth daily. 90 Tablet 3 05/27/19 25 Active metoprolol Succinate (TOPROL-XL) 25 MG TABLET SR 24 HR Take 1 Tablet by mouth daily. 90 Tablet 3 07/04/19 25 Active montelukast (SINGULAIR) 10 MG TabletIndication s:Moderate persistent asthma with status asthmaticus TAKE 1 TABLET BY MOUTH EVERY DAY IN THE EVENING 90 Tablet 2 09/28/19 25 Active budesonide-formo terol fumarate (SYMBICORT) 160-4.5 MCG/ACT Aerosol take 2 Puffs by inhalation 2 times daily. 30.6 g 1 09/30/19 25 Active predniSONE (DELTASONE) 20 MG Tablet Take 1 Tablet by mouth 2 times daily. 10 Tablet 10/30/19 25 Active alendronate (FOSAMAX) 70 MG Tablet Take 1 Tablet by mouth every 7 days. 12 Tablet 3 11/06/19 25 Active budesonide, nasal, (RA Budesonide) 32 MCG/ACT SuspensionIndica tions:Chronic ethmoidal sinusitis,Hypert rophy of both inferior nasal turbinates,Aller gic rhinitis, unspecified seasonality, unspecified trigger,Polyp of nasal sinus,Uncomplica francis severe persistent asthma,Nasal mucosa dry,Smell, impaired,Chronic eczematous otitis externa of both ears,Posterior rhinorrhea 1 Foss by Nasal route 2 times daily. Use in each nostril as directed after cleansing nose with saline. 8.6 g 11 11/21/19 25 Active losartan (COZAAR) 25 MG TabletIndication s:Essential (primary) hypertension Take 1 Tablet by mouth daily. 90 Tablet 3 12/12/19 25 Active albuterol 108 (90 Base) MCG/ACT Aerosol Solution INHALE 1 TO 2 PUFFS EVERY 6 HOURS NEEDED FOR COUGH 18 g 1 12/13/19 25 Active celecoxib (CeleBREX) 100 MG CapsuleIndicatio ns:Lumbar spondylosis TAKE 1 CAPSULE BY MOUTH TWICE A DAY 180 Capsule 3 02/13/20 25 Active celecoxib (CeleBREX) 100 MG CapsuleIndicatio ns:Lumbar spondylosis Take 1 Capsule by mouth 2 times daily. 180 Capsule 3 02/02/20 24 025 Discontinued sulfamethoxazole -trimethoprim DS (Bactrim DS) 800-160 MG TabletIndication s:Acute recurrent ethmoidal sinusitis Take 1 Tablet by mouth 2 times daily for 10 days. 20 Tablet 02/12/20 25 025 Active Problems Problem Noted Date Diagnosed Date Elevated vitamin B12 level 01/07/2025 Osteopenia 11/05/2024 Subacute maxillary sinusitis 10/29/2024 Primary hypertension 07/03/2024 Chronic back pain greater than 3 months duration 07/03/2024 Chronic joint pain 10/09/2023 Abnormal mammogram 07/19/2023 Abnormal stool color 06/15/2023 History of left breast cancer 06/15/2023 Breast pain, left 06/15/2023 Postmenopausal 06/14/2022 Leukocytosis 01/17/2022 Asthma exacerbation 11/10/2021 Hypokalemia 11/10/2021 Ductal carcinoma in situ (DCIS) of left breast 1 04/23/2017 Abnormal mammogram of left breast 02/20/2018 Hyperglycemia 02/10/2018 Gallbladder polyp 05/12/2017 Hepatic steatosis 05/12/2017 Idiopathic gout 11/10/2015 Elevated liver enzymes 10/21/2015 Overweight (BMI 25.0-29.9) 10/21/2015 Bronchitis 06/03/2015 Vitamin D insufficiency 05/02/2015 Uncomplicated severe persistent asthma 6 Hyperlipidemia 03/18/2015 Encounters Date Type Department Care Team Description 02/21/2025 Telephone [facility], N[facility] & [facility]2 [facility] [place] [address] Mohamud Carrion MD 02/20/2025 2:15 PM CNC FIELD SERVICE ENGINEER Office Visit [facility] [place] [address] Mhoamud Carrion MD Sleep-disordered breathing (Primary Dx); Snoring; Chronic maxillary sinusitis; Deviated nasal septum; Hypertrophy of both inferior nasal turbinates; Noninvasive fungal sinusitis Discharge Disposition: Discharged to home or Selfcare 02/20/2025 Travel 02/12/2025 Refill [facility] #2 [place] [address] Brad Rivera MD Medication Refill 01/07/2025 1:45 PM CDT Office Visit [facility] #2 [place] [address] Brad Rivera MD Hyperlipidemia, unspecified hyperlipidemia type (Primary Dx); Screening for colon cancer; Vitamin D insufficiency; Elevated vitamin B12 level Discharge Disposition: Discharged to home or Selfcare 01/07/2025 Travel 12/25/2024 1:15 PM CDT Office Visit [facility] [place] [address] Mohamud Carrion MD Polyp of nasal sinus (Primary Dx); Snoring; Sleep-disordered breathing; Chronic maxillary sinusitis; Hypertrophy of both inferior nasal turbinates; Nasal mucosa dry; Nasal ulcer Discharge Disposition: Discharged to home or Selfcare 12/25/2024 Travel 12/21/2024 8:03 AM CDT - 12/21/2024 11:59 PM CDT Hospital Encounter [facility] [address] [place] [address] Mohamud Carrion MD Discharge Disposition: Discharged to home or Selfcare 12/21/2024 Travel 12/11/2024 Refill [facility] [place] [address] Brad Rivera MD Medication Refill from Last 3 Months Immunizations Immunization Administration Dates Next Due Influenza Vaccine greater than 3 yrs 11/15/2018 Influenza Vaccine, Quadrivalent, PF 12/23/2016 Influenza, Seasonal, Injectable, Undefined 11/15 TB Skin Test 12/26/2016,12/23/2016,09/22/2014 TDAP Vaccine 01/12/2017 Family History Medical History Relation Name Comments Asthma Brother 1 Andrzej Rogers Heart Attack Brother 1 Andrzej Rogers 5 stents at age 48 Asthma Brother 2 Andrzej Rogers Heart Attack Brother 2 Andrzej Rogers 5 stents at age 48 Asthma Brother 3 Heart Attack Brother 3 5 stents at age 48 Asthma Brother 4 Andrzej Rogers Heart Attack Brother 4 Andrzej Rogers Asthma Brother 5 Andrzej Rogers Heart Attack Brother 5 Andrzej Rogers 5 stents at age 48 Arthritis Father Andrzej Rdzey Asthma Father Andrzej Rogers Cancer Father Andrzej Rogers Prostate cancer Heart Disease Father Andrzej Rogers Hypertension Father Andrzej Rogers -Lympho ma Rheumatoid Arthritis Father Andrzej Rdzey Breast Cancer Maternal Aunt Endometriosis Mother Denia oRgers High Cholesterol Mother Deniakerwin Rogers Hypertension Mother Deniakerwin Rogers - Strok e Osteoarthritis Mother Deniakerwin Rogers Stroke Mother Deniakerwin Rogers Breast Cancer Paternal Aunt Relation Name Status Comments Brother 1 Andrzej Rogers Brother 2 Andrzej Rogers Alive Brother 3 Alive Brother 4 Andrzej Rogers Alive Brother 5 Andrzej Rogers Alive Father Andrzej Rogers Alive Maternal Aunt Mother Denia Rogers Alive Paternal Aunt Sister Alive Social History Tobacco Use Types Packs/Day Years Used Date Smoking Tobacco: Never Passive Smoke Exposure: Past Smokeless Tobacco: Never Tobacco Cessation:Counseling Given: Yes Alcohol Use Standard Drinks/Week Comments Yes 3 (1 standard drink = 0.6 oz pur e alcohol) occasionally [facility] Utilities Answer Date Recorded In the past 12 months has th e electric, gas, oil, or water company [...] often do you attend chur ch or judaism services? Never 05/28/2024 Do you belong to any clubs o r organizations such as hindu groups, unions, fraternal or athletic groups, or [...] Total Score - Questions 1-9 0 03/13 [facility] [place] of Occupat ional Health - Occupational Stress [...] place to sleep or slept in a mcc (including now)? No 06/15/2023 Housing Stability Vital Sign Answer Trino e Recorded In the last 12 months, was t here a time when you were not able to pay the mortgage or rent on time? No 05/28/2024 In the past 12 months, how m any times have you moved where you were living? 0 05/28/2024 At any time in the past 12 m [facility], were you homeless or living in a mcc (including now)? No 05/28/2024 Education Answer Date [...] CDT Gender Identity Female 01/16/2023 10:01 AM CNC FIELD SERVICE ENGINEER Sexual Orientation Straight 01/16/2023 10 :01 AM CNC FIELD SERVICE ENGINEER Last Filed Vital Signs Vital Sign Reading Time Taken Comments Blood Pressure 102/60 02/20/2025 2:30 PM CNC FIELD SERVICE ENGINEER Pulse 66 02/20/2025 2:30 PM CNC FIELD SERVICE ENGINEER Temperature 36.1 C (97 F) 01/07/2025 1:32 PM CDT Respiratory Rate 20 02/20/2025 2:30 PM CNC FIELD SERVICE ENGINEER Oxygen Saturation 95% 02/20/2025 2:30 PM CNC FIELD SERVICE ENGINEER Inhaled Oxygen Concentration - - Weight 73 kg (161 lb) 02/20/2025 2:30 PM CNC FIELD SERVICE ENGINEER Height 170.2 cm (5' 7) 02/20/2025 2:30 PM CNC FIELD SERVICE ENGINEER Body Mass Index 25.22 02/20/2025 2:30 PM CNC FIELD SERVICE ENGINEER Plan of Treatment Upcoming Encounters Date Type Department Care Team (Late st Contact Info) Description 05/08/2025 1:45 PM CNC FIELD SERVICE ENGINEER Office Visit [facility] - [facility] & [facility]ro[facility] - [place] #2 [place] [address] Mohamud Carrion MD #[address] [address] 07/08/2025 1:30 PM CDT Office Visit [facility] - Family Medicine - [place] #2 [place] [address] Brad Rivera MD #2 [facility] [address] [place] [address] 07/16/2025 1:00 PM CDT Office Visit [facility] - [facility], N[facility] & Th[facility] - [place] #2 [place] [address] Mohamud Carrion MD #[address] [address] Health Maintenance Due Date Last Done Comments Pneumococcal Immunization (50+ years) (1 of 2 - PCV) 1974 Colonoscopy 2000 Immunochemical Fecal Occult Blood 2000 Respiratory Syncytial Virus (RSV) Immunization (Adult) (1 - Risk 50-74 years 1-dose series) 2005 Zoster Immunization (1 of 2) 2005 Medicare Initial AWV [id number] 02/10/2021 Influenza Immunization (#1) 2024 09/0 07/2018, 11/15/2018, 12/23/2016 SARS-COV-2 Immunization (1 - season) 2024 Cologuard 08/01/2025 08/01/2022 Colorectal Cancer Screening 08/01/2025 Mammogram Unilateral 09/11/2025 09/11/2024, 08/28/2023, 08/10/2022, Additional history exists DEXA Bone Density 11/04/2026 11/04/2024, 08/10/2022 Td Immunization Every 10 Years (Adults With 1 Tdap) 01/12/2027 01/12/2017 Hepatitis C Virus (HCV) Screening Completed 12/23/2016 Hepatitis B Immunization Aged Out No longer eligible based on patient's age to complete this topic Human Papillomavirus (HPV) Immunization (No Doses Required) Completed Meningococcal Immunization (ACWY) Aged Out No longer eligible based on patient's age to complete this topic Rotavirus Immunization Aged Out No lo nger eligible based on patient's age to complete this topic Procedures Procedure Name Priority Date/Time Associated Diagnosis Comments S PNEUMONIAE IGG AB, 23 SEROTYPES. SERUM, RICE, PN23M Routine 02/22/2025 10:32 AM CNC FIELD SERVICE ENGINEER Sleep-disordered breathing Snoring Chronic maxillary sinusitis Deviated nasal septum Hypertrophy of both inferior nasal turbinates CMP (COMPREHENSIVE METABOLIC PANEL) Routine 02/22/2025 10:32 AM CNC FIELD SERVICE ENGINEER Hyperlipidemia, unspecified hyperlipidemia type VITAMIN D, 25 HYDROXY TOTAL Routine 02/22/2025 10:32 AM CNC FIELD SERVICE ENGINEER Vitamin D insufficiency VITAMIN B12 Routine 02/22/2025 10:32 AM CNC FIELD SERVICE ENGINEER Elevated vitamin B12 level LIPID PANEL Routine 02/22/2025 10:32 AM CNC FIELD SERVICE ENGINEER Hyperlipidemia, unspecified hyperlipidemia type NASAL ENDOSCOPY,DX Routine 02/20/2025 2: 15 PM CNC FIELD SERVICE ENGINEER Sleep-disordered breathing Snoring CT SINUSES W/O CONTRAST Routine 12/21/2024 8:14 AM CDT Chronic ethmoidal sinusitis Hypertrophy of both inferior nasal turbinates Allergic rhinitis, unspecified seasonality, unspecified trigger Polyp of nasal sinus [facility] BONE DENSITOMETRY AXIAL SKELETON Routine 11/04/2024 11:15 AM CDT Postmenopausal DAVID SCREENING RIGHT UNILAT DIGITAL W CAD W MARJ Routine 09/11/2024 12:47 PM CDT Screening mammogram for breast cancer COLOGUARD Routine 08/01/2022 7:45 AM CDT Screening for colon cancer HEPATITIS C ANTIBODY Routine 12/23/2016 11:34 AM CDT Encounter for hepatitis C screening test for low risk patient from Last 3 Months or Most Recently Relevant to Health Maintenance Results * VITAMIN D, 25 HYDROXY TOTAL (02/22/2025 10:32 AM CNC FIELD SERVICE ENGINEER) VITAMIN D, 25 HYDROX 20.3 ng/mL 02/22/2025 11:39 AM CNC FIELD SERVICE ENGINEER [facility] Blood Venipuncture / Unknown 02/22/2025 10:32 AM CNC FIELD SERVICE ENGINEER 02/22/2025 10:46 AM CNC FIELD SERVICE ENGINEER Narrative [facility] - 02/22/2025 11:39 AM CNC FIELD SERVICE ENGINEER Published reference ranges for Vitamin D vary depending on time and place and method of testing, and on patient's age, sex, ethnicity and levels of other measured analytes such as parathormone, calcium and phosphorus. The result should be evaluated in conjunction with clinical findings and suspicions. [place] [employer] and Endocrine Clinical Practice Guidelines: Status Vitamin D levels (ng/mL) Deficient <=20 At risk of inadequacy 21-29 Sufficient 30-100 Centers of Disease Control and Prevention Guidelines: Status Vitamin D levels (ng/mL) Deficient <13 At risk of inadequacy 13-19 Sufficient 20-50 Possibly harmful >50 References: [place] [employer], 2010 Dietary reference intakes for calcium and vitamin D. [place]: The National Academies Press. Anita M, Tiffany N, Skyler RODRIGUEZ, et al., Evaluation, treatment, and prevention of Vitamin D deficiency: an Endocrinology Clinical Practice Guideline. JCEM 2011 96: 7 5613-8255. Hawk A, Connor C, Yannick D, et al., Vitamin D Status: [place], 2271-8802, [facility] data brief, no. 59, MD Janneth: National Center for Health Statistics. 2011. Brad Rivera MD CHEMISTRY ORDERABLES Hoa crow Result [facility] #1 [place] [address] * S PNEUMONIAE IGG AB, 23 SEROTYPES. SERUM, RICE 23M (02/22/2025 10:32 AM CNC FIELD SERVICE ENGINEER) PN23M, SEROTYPE 1 (1) RICE 0.3 >=1.0 mcg/mL 02/26/2025 8:45 AM CNC FIELD SERVICE ENGINEER [facility] PN23M, SEROTYPE 2 (2) RICE 0.1 >=1.0 mcg/mL 02/26/2025 8:45 AM CNC FIELD SERVICE ENGINEER [facility] PN23M, SEROTYPE 3 (3) RICE <0.1 >=1.0 mcg/mL 02/26/2025 8:45 AM CNC FIELD SERVICE ENGINEER [facility] PN23M, SEROTYPE 4 (4) RICE <0.1 >=1.0 mcg/mL 02/26/2025 8:45 AM CNC FIELD SERVICE ENGINEER [facility] PN23M, SEROTYPE 5 (5) RICE 0.1 >=1.0 mcg/mL 02/26/2025 8:45 AM CNC FIELD SERVICE ENGINEER [facility] PN23M, SEROTYPE 8 (8), RICE 0.3 >=1.0 mcg/mL 02/26/2025 8:45 AM CNC FIELD SERVICE ENGINEER [facility] PN23M, SEROTYPE 9N (9), IRCE 0.6 >=1.0 mcg/mL 02/26/2025 8:45 AM CNC FIELD SERVICE ENGINEER [facility] PN23M, SEROTYPE 12F (12), RICE 0.3 >=1.0 mcg/mL 02/26/2025 8:45 AM CNC FIELD SERVICE ENGINEER [facility] PN23M, SEROTYPE 14 (14), RICE 0.3 >=1.0 mcg/mL 02/26/2025 8:45 AM CNC FIELD SERVICE ENGINEER [facility] PN23M, SEROTYPE 17F (17), RICE 0.2 >=1.0 mcg/mL 02/26/2025 8:45 AM CNC FIELD SERVICE ENGINEER [facility] PN23M, SEROTYPE 19F (19), RICE 0.7 >=1.0 mcg/mL 02/26/2025 8:45 AM CNC FIELD SERVICE ENGINEER [facility] PN23M, SEROTYPE 20 (20), RICE 0.5 >=1.0 mcg/mL 02/26/2025 8:45 AM CNC FIELD SERVICE ENGINEER [facility] PN23M, SEROTYPE 22F (22), RICE 0.3 >=1.0 mcg/mL 02/26/2025 8:45 AM CNC FIELD SERVICE ENGINEER [facility] PN23M, SEROTYPE 23F (23), RICE 0.2 >=1.0 mcg/mL 02/26/2025 8:45 AM CNC FIELD SERVICE ENGINEER [facility] PN23M, SEROTYPE 6B (26), RICE 0.2 >=1.0 mcg/mL 02/26/2025 8:45 AM CNC FIELD SERVICE ENGINEER [facility] PN23M, SEROTYPE 10A (34), RICE 0.4 >=1.0 mcg/mL 02/26/2025 8:45 AM CNC FIELD SERVICE ENGINEER [facility] PN23M, SEROTYPE 11A (43), RICE 0.3 >=1.0 mcg/mL 02/26/2025 8:45 AM CNC FIELD SERVICE ENGINEER [facility] PN23M, SEROTYPE 7F (51), RICE 0.3 >=1.0 mcg/mL 02/26/2025 8:45 AM CNC FIELD SERVICE ENGINEER [facility] PN23M, SEROTYPE 15B (54), RICE 0.3 >=1.0 mcg/mL 02/26/2025 8:45 AM CNC FIELD SERVICE ENGINEER [facility] PN23M, SEROTYPE 18C (56), RICE 0.7 >=1.0 mcg/mL 02/26/2025 8:45 AM CNC FIELD SERVICE ENGINEER [facility] PN23M, SEROTYPE 19A (57), RICE 0.5 >=1.0 mcg/mL 02/26/2025 8:45 AM CNC FIELD SERVICE ENGINEER [facility] PN23M, SEROTYPE 9V (68), PRINCETON 0.1 >=1.0 mcg/mL 02/26/2025 8:45 AM CNC FIELD SERVICE ENGINEER [facility] PN23M, SEROTYPE 33F (70), PRINCETON 0.5 >=1.0 mcg/mL 02/26/2025 8:45 AM CNC FIELD SERVICE ENGINEER [facility] PN23M, INTERPRETATION, PRINCETON SEE NOTE 02/26/2025 8:45 AM CNC FIELD SERVICE ENGINEER [facility] Comment: Evaluation of the immune response following pneumococcal vaccination can be assessed by measuring serotype-specific Streptococcus pneumonia IgG antibodies. Either of the following conditions is consistent with a normal response to Streptococcus pneumonia vaccination: 1. When comparing pre and post-vaccination samples, antibody concentrations increased by at least 2-fold for either >50% of serotypes in children <6 years of age or >70% of serotypes for individuals >6 years of age. 2. In either a pre- or post-vaccination sample, antibody concentrations >=1.0 mcg/mL for either >50% of serotypes for children <6 years of age or >70% of serotypes for individuals >6 years of age. Results >=1.0 mcg/mL or those showing a >=2-fold change are consistent with an immune response, but are not necessarily sufficient to provide protection against infection. ADDITIONAL INFORMATION This test was developed and its performance characteristics determined by [facility] in a manner consistent with CLIA requirements. This test has not been cleared or approved by the U.S. Food and Drug Administration. Test Performed by: [facility] - [address] [address] Jig And Fixture Builder Apprentice: Kinza Ryder Ph.D.; CLIA# [id number] Blood Venipuncture / Unknown 02/22/2025 10:32 AM CNC FIELD SERVICE ENGINEER 02/22/2025 10:46 AM CNC FIELD SERVICE ENGINEER us Mohamud Carrion MD LAB SEND OUTS Final Result [facility] * VITAMIN B12 (02/22/2025 10:32 AM CNC FIELD SERVICE ENGINEER) VITAMIN B12 514 213 - 816 pg/mL 02/22/2025 11:39 AM CNC FIELD SERVICE ENGINEER [facility] Blood Venipuncture / Unknown 02/22/2025 10:32 AM CNC FIELD SERVICE ENGINEER 02/22/2025 10:46 AM CNC FIELD SERVICE ENGINEER Brad Rivera MD CHEMISTRY ORDERABLES Hoa l Result [facility] #[address] [place] [address] * (ABNORMAL) LIPID PANEL (02/22/2025 10:32 AM CNC FIELD SERVICE ENGINEER) CHOLESTEROL 215(H) <200 mg/dL 02/22/2025 11:51 AM CNC FIELD SERVICE ENGINEER [facility] TRIGLYCERIDES 150(H) <150 mg/dL 02/22/2025 11:51 AM CNC FIELD SERVICE ENGINEER [facility] HDL CHOLESTEROL 43 >40 mg/dL 11:51 AM [facility] LDL 142(H) <130 mg/dL 02/22/2025 11:51 AM [facility] VLDL 30 10 - 50 mg/dL 02/22/2025 11:51 AM [facility] CHOL/HDL RATIO 5.0(H) 0.0 - 4.4 02/22/2025 11:51 AM CNC FIELD SERVICE ENGINEER [facility] NON-HDL CHOLESTEROL 172(H) <130 mg/dL 02/22/2025 11:51 AM [facility] IS THE PATIENT REQUIRED TO BE FASTING? Yes 02/22/2025 11:51 AM [facility] HAS THE PATIENT BEEN FASTING? Yes 02/22/2025 11:51 AM [facility] Blood Venipuncture / Unknown 02/22/2025 10:32 AM CNC FIELD SERVICE ENGINEER 02/22/2025 10:46 AM CNC FIELD SERVICE ENGINEER Narrative [facility] - 02/22/2025 11:51 AM [facility] NCEP GUIDELINES FOR LIPID INTERPRETATION TOTAL CHOLESTEROL DESIRABLE <200 BORDERLINE 200-239 HIGH >=240 LDL CHOLESTEROL OPTIMAL <100 NEAR OPTIMAL 100-129 BORDERLINE 130-159 HIGH 160-189 VERY HIGH >=190 Calculated using the Friedewald equation. HDL CHOLESTEROL LOW <40 *HIGH >=60 TRIGLYCERIDES NORMAL <150 BORDERLINE 150-199 HIGH 200-499 VERY HIGH >=500 VLDL calculated using Triglycerides/5. *HDL CHOLESTEROL >=60 mg/dL counts as a negative risk factor; its presence removes one risk factor from the total. Based on guidelines from the National Cholesterol Education Program, desirable levels for non HDL cholesterol are 30 mg/dL above target levels for LDL cholesterol. Brad Rivera MD CHEMISTRY ORDERABLES Hoa crow Result [facility] #[address] [place] [address] * (ABNORMAL) CMP (COMPREHENSIVE METABOLIC PANEL) (02/22/2025 10:32 AM CNC FIELD SERVICE ENGINEER) SODIUM 140 136 - 145 mmol/L 02/22/2025 11:51 AM [facility] POTASSIUM 5.0 3.5 - 5.1 mmol/L 02/22/2025 11:51 AM [facility] CHLORIDE 108(H) 98 - 107 mmol/L 02/22/2025 11:51 AM [facility] CO2, VENOUS 23 22 - 30 mmol/L 02/22/2025 11:51 AM [facility] ANION GAP 14.0 <18.0 mmol/L 02/22/2025 11:51 AM [facility] GLUCOSE 107(H) 70 - 99 mg/dL 02/22/2025 11:51 AM [facility] BUN 21(H) 10 - 20 mg/dL 02/22/2025 11:51 AM [facility] CREATININE, BLOOD 1.02(H) 0.60 - 1.00 mg/dL 02/22/2025 11:51 AM [facility] BUN/CREATININE RATIO 21(H) 12 - 20 ratio 02/22/2025 11:51 AM [facility] TOTAL PROTEIN 7.1 6.0 - 8.0 g/dL 02/22/2025 11:51 AM [facility] ALBUMIN 4.4 3.5 - 5.0 g/dL 02/22/2025 11:51 AM [facility] A/G RATIO 1.6 1.0 - 2.2 02/22/2025 11:51 AM [facility] CALCIUM 9.5 8.7 - 10.5 mg/dL 02/22/2025 11:51 AM [facility] T BILI 0.6 0.2 - 1.2 mg/dL 02/22/2025 11:51 AM [facility] SGOT (AST) 76(H) <43 U/L 02/22/2025 11:51 AM [facility] SGPT (ALT) 92(H) <56 U/L 02/22/2025 11:51 AM [facility] ALKALINE PHOSPHATASE 103 40 - 150 U/L 02/22/2025 11:51 AM [facility] IS THE PATIENT REQUIRED TO BE FASTING? No 02/22/2025 11:51 AM [facility] GFR, ESTIMATED 60 >=60 02/22/2025 11:51 AM [facility] Comment: Creatinine Clearance is the preferred criteria for selecting drug dose adjustments in renally impaired patients. The GFR is provided as additional pertinent clinical information. GFR is reported in mL/min/1.73 sq m. Calculation based on the 2020 Chronic Kidney Disease Epidemiology Collaboration (CKD-EPI) equation refit without adjustment for race. GFR, EST. >60 >=60 025 11:51 AM [facility] Comment: Creatinine Clearance is the preferred criteria for selecting drug dose adjustments in renally impaired patients. The GFR is provided as additional pertinent clinical information. GFR is reported in mL/min/1.73 sq m. Calculation based on the 2009 Chronic Kidney Disease Epidemiology Collaboration (CKD-EPI). GFR, EST. NONAFRICAN 54(L) >=60 02/22/2025 11:51 AM CNC FIELD SERVICE ENGINEER [facility] Comment: Creatinine Clearance is the preferred criteria for selecting drug dose adjustments in renally impaired patients. The GFR is provided as additional pertinent clinical information. GFR is reported in mL/min/1.73 sq m. Calculation based on the 2009 Chronic Kidney Disease Epidemiology Collaboration (CKD-EPI). Blood Venipuncture / Unknown 02/22/2025 10:32 AM CNC FIELD SERVICE ENGINEER 02/22/2025 10:46 AM CNC FIELD SERVICE ENGINEER Brad Rivera MD CHEMISTRY ORDERABLES Hoa l Result [facility] [address] [place] [address] * NASAL ENDOSCOPY,DX (02/20/2025 2:15 PM CNC FIELD SERVICE ENGINEER) Other Narrative Mohamud Carrion MD - 02/20/2025 2:15 PM CNC FIELD SERVICE ENGINEER Mohamud Carrion MD 02/20/2025 4:59 PM Procedure: Rigid Nasal Endoscopy Anesthesia: Bilateral Nasal Cavities sprayed with lidocaine and oxymetazoline Detail: Rigid nasal endoscopy performed bilaterally. We visualized the entire septum as well as the inferior turbinate, middle turbinate, superior turbinate and sphenoethmoid recess. We also visualized the nasopharynx. Unless mentioned below these structures were normal. Septum was mildly deviated to the left. Bilateral nasal cavity showed left side maxillary sinus previously operated with what is seems to be fungal ball EBL: none Mohamud Carrion MD PROCEDURE/MINOR SURGICAL ORDERA BLES Final Result * CT SINUSES W/O CONTRAST (12/21/2024 8:14 AM CDT) Anatomical Region Laterality Modality Head N/A Computed Tomogra phy 12/21/2024 8:14 AM CDT Impressions 12/21/2024 12:00 PM CDT IMPRESSION: 1. Paranasal sinus postsurgical changes as detailed above. 2. Paranasal sinus inflammatory mucosal thickening as detailed above, most prominent in the maxillary sinuses where there are changes of chronic sinus disease. 3. Blockage of the left sphenoethmoidal recess, otherwise patent sinus drainage pathways. Narrative 12/21/2024 12:00 PM CDT DICTATING PHYSICIAN: Matthias Arreguin M.D. - [facility] EXAM: CT SINUSES W/O CONTRAST, 12/21/2024 8:14 AM COMPARISON: None. INDICATION: Chronic sinusitis, hypertrophy of nasal turbinates, allergic rhinitis, polyp of sinus. PROCEDURE: CT images of the paranasal sinuses through the calvarial vertex were obtained without intravenous contrast. Image reconstruction in the sagittal and coronal planes was performed. Radiation dose reduction technique(s) were used. Total DLP (mGy-cm): 1310. FINDINGS: Bones: No acute fracture or dislocation. Postsurgical changes: Prior bilateral frontal sinusotomies, ethmoidectomies, maxillary antrostomies, and uncinectomies. Frontal sinuses: Mild mucosal thickening bilaterally. Patent sinus drainage pathways. Ethmoid sinuses: Opacification of a few residual right ethmoid air cells. Flattening of the ethmoid sinus roofs. Maxillary sinuses: Mucosal thickening in the left greater than right maxillary sinuses. There is some calcified/hyperdense material centrally in the left maxillary sinus. Bilateral sinus wall hyperostosis. Patent antrostomies. Sphenoid sinuses: Mild mucosal thickening bilaterally. Hypoplastic left sphenoid sinus. Left Onidi air cell. Sphenoethmoidal recesses are narrowed on the right and blocked on the left. Nasal cavity/nasal septum: Nasal septum is essentially midline. Soft tissues: Unremarkable. Dentition: The teeth are without significant acute pathology. Maxillary teeth are absent. Middle ear and mastoid air cells: Clear. Visualized brain and skull base: Unremarkable. Procedure Note Matthias Arreguin MD - 12/21/2024 DICTATING PHYSICIAN: Matthias Arreguin M.D. - [facility] EXAM: CT SINUSES W/O CONTRAST, 12/21/2024 8:14 AM COMPARISON: None. INDICATION: Chronic sinusitis, hypertrophy of nasal turbinates, allergicrhinitis, polyp of sinus. PROCEDURE: CT images of the paranasal sinuses through the calvarial vertexwere obtained without intravenous contrast. Image reconstruction in thesagittal and coronal planes was performed. Radiation dose reductiontechnique(s) were used. Total DLP (mGy-cm): 1310. FINDINGS: Bones: No acute fracture or dislocation. Postsurgical changes: Prior bilateral frontal sinusotomies,ethmoidectomies, maxillary antrostomies, and uncinectomies. Frontal sinuses: Mild mucosal thickening bilaterally. Patent sinusdrainage pathways. Ethmoid sinuses: Opacification of a few residual right ethmoid air cells.Flattening of the ethmoid sinus roofs. Maxillary sinuses: Mucosal thickening in the left greater than rightmaxillary sinuses. There is some calcified/hyperdense material centrallyin the left maxillary sinus. Bilateral sinus wall hyperostosis. Patentantrostomies. Sphenoid sinuses: Mild mucosal thickening bilaterally. Hypoplastic leftsphenoid sinus. Left Onidi air cell. Sphenoethmoidal recesses are narrowedon the right and blocked on the left. Nasal cavity/nasal septum: Nasal septum is essentially midline. Soft tissues: Unremarkable. Dentition: The teeth are without significant acute pathology. Maxillaryteeth are absent. Middle ear and mastoid air cells: Clear. Visualized brain and skull base: Unremarkable. IMPRESSION: 1. Paranasal sinus postsurgical changes as detailed above. 2. Paranasal sinus inflammatory mucosal thickening as detailed above,most prominent in the maxillary sinuses where there are changes of chronicsinus disease. 3. Blockage of the left sphenoethmoidal recess, otherwise patent sinusdrainage pathways. Mohamud Carrion MD [facility] CT ORDERABLES Final Result * DAVID BONE DENSITOMETRY AXIAL SKELETON (11/04/2024 11:15 AM CDT) Anatomical Region Laterality Modality BODY N/A Computed Radiogr aphy 11/04/2024 8:08 PM CDT Impressions 11/04/2024 8:10 PM CDT IMPRESSION: 1. Low Bone Mass. REFERENCE: Bone mineral density: T-Score: Normal (T-score above or = -1.0) Low bone mass (T-score between -1.0 and -2.5) replaces the previously used term osteopenia Osteoporosis (T-score = or below -2.5) Z-Score: Within the expected range for age (Z-score above -2.0) Below the expected range for age (Z-score is -2.0 or below) Please see below follow up recommendations. Medical evaluation for secondary causes of low bone mineral density may be appropriate. FRAX is a World Health Organization validated fracture risk assessment tool that calculates a person's 10 year probability of a major osteoporosis related fracture and hip fracture. According to the National Osteoporosis Foundation guidelines, postmenopausal women and men age 50 or older with low bone mass and a 10 year probability of a major osteoporosis related fracture = or greater than 20% or a 10 year probability of a hip fracture = or greater than 3% should be considered for pharmacological treatment for the prevention of osteoporosis. 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 CLINICAL INFORMATION: Current height: 67 inches Maximum height: 67 inches Weight: 160 pounds Risk factors: Postmenopausal, steroid use, asthma or emphysema COMPARISON: 08/10/2022 FINDINGS: AP LUMBAR SPINE L1-L4: Total BMD is 1.339 g/cm2 T-score is 1.2 This is increased in comparison to prior exam which is not statistically significant. LEFT HIP: Total BMD is 1.004 g/cm2 T-score is 0.0 This is increased in comparison to prior exam which as not statistically significant. Femoral neck BMD is 0.865 g/cm2 T-score is -1.2 FRAX: 10 year risk for a major osteoporotic fracture is 14.8 %, 10 year risk for a hip fracture is 2.0 % Per National Osteoporosis Foundation guidelines, this patient does not meet the criteria for pharmacological treatment of patients with FRAX 10 year major osteoporotic fracture risk scores of = or greater than 20% or a 10 year probability of a hip fracture = or greater than 3%, to reduce fracture risk. Additional factors such as frequent falls are not represented in FRAX and warrant individual clinical judgment. THIS IS AN ELECTRONICALLY VERIFIED FINAL REPORT 11/04/2024 8:08 PM - Electronically signed by Juan Ramon NIEVES: EZEQUIEL Report ID: [id number] Reading Location: [place] [address] Procedure Note Juan Ramon Lin MD - 11/04/2024 EXAM DESCRIPTION: 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 CLINICAL INFORMATION: Current height: 67 inches Maximum height: 67 inches Weight: 160 pounds Risk factors: Postmenopausal, steroid use, asthma or emphysema COMPARISON: 08/10/2022 FINDINGS: AP LUMBAR SPINE L1-L4: Total BMD is 1.339 g/cm2 T-score is 1.2 This is increased in comparison to prior exam which is not statistically significant. LEFT HIP: Total BMD is 1.004 g/cm2 T-score is 0.0 This is increased in comparison to prior exam which as not statistically significant. Femoral neck BMD is 0.865 g/cm2 T-score is -1.2 FRAX: 10 year risk for a major osteoporotic fracture is 14.8 %, 10 year risk for a hip fracture is 2.0 % Per National Osteoporosis Foundation guidelines, this patient does not meet the criteria for pharmacological treatment of patients with FRAX 10 year major osteoporotic fracture risk scores of = or greater than 20% or a 10 year probability of a hip fracture = or greater than 3%, to reduce fracture risk. Additional factors such as frequent falls are not represented in FRAX and warrant individual clinical judgment. THIS IS AN ELECTRONICALLY VERIFIED FINAL REPORT 11/04/2024 8:08 PM - Electronically signed by Juan Ramon NIEVES: EZEQUIEL Report ID: [id number] Reading Location: [id number] IMPRESSION: 1. Low Bone Mass. REFERENCE: Bone mineral density: T-Score: Normal (T-score above or = -1.0) Low bone mass (T-score between -1.0 and -2.5) replaces the previously used term osteopenia Osteoporosis (T-score = or below -2.5) Z-Score: Within the expected range for age (Z-score above -2.0) Below the expected range for age (Z-score is -2.0 or below) Please see below follow up recommendations. Medical evaluation for secondary causes of low bone mineral density may be appropriate. FRAX is a World Health Organization validated fracture risk assessment tool that calculates a person's 10 year probability of a major osteoporosis related fracture and hip fracture. According to the National Osteoporosis Foundation guidelines, postmenopausal women and men age 50 or older with low bone mass and a 10 year probability of a major osteoporosis related fracture = or greater than 20% or a 10 year probability of a hip fracture = or greater than 3% should be considered for pharmacological treatment for the prevention of osteoporosis. For further information, including treatment recommendations, please refer to the 2019 ISCD Official Positions (http://www.iscd.org) and the NOF's Clinician's Guide to Prevention and Treatment of Osteoporosis (http://www.nof.org/professionals/clinical-guidelines) Brad Rivera MD IMG DEXA ORDERABLES Final Result * ADVID SCREENING RIGHT UNILAT DIGITAL W CAD W MARJ (09/11/2024 12:47 PM CDT) Anatomical Region Laterality Modality breast Right Mammography 09/11/2024 12:4 2 PM CDT Narrative 09/12/2024 9:20 AM CDT - DAVID SCREENING RIGHT UNILAT DIGITAL W CAD W MARJ UNILATERAL RIGHT DIGITAL SCREENING MAMMOGRAM 3D/2D WITH CAD WITH MEDIOLATERAL OBLIQUE CRANIOCAUDAL: 09/11/2024 The study was acquired using digital technology and interpreted from soft copy. Current study was also evaluated with ICAD version 7.2. 2D digital mammographic views, as well as 3D digital tomosynthesis were performed in the CC and MLO projections. CLINICAL: Routine right breast screening. Patient has no complaints. Previous history of left breast cancer, twice, resulting in mastectomy with KARLA flap. Maternal and paternal aunt had breast cancer. Patient reports 15 pound weight loss since last mammogram. COMPARISONS: Comparison is made to exams dated: 08/28/2023, 08/10/2022, and 11/26/2019 [facility]. BREAST TISSUE:The breasts are almost entirely fatty. FINDINGS: No significant masses, calcifications, or other findings are seen in the breast. There has been no significant interval change. IMPRESSION: NEGATIVE There is no mammographic evidence of malignancy. A 1 year screening mammogram is recommended. A letter will be sent to the patient with these results. The patient will be entered into a reminder system with a target due date of 1 year for her next screening exam. Electronically signed by: Serafin Rene M.D. ll/penellie:09/11/2024 20:30:10 Cracking And Fanning Machine Operator(s): RT Tyra(R)(M), [facility] letter sent: Normal Exam Reading location: [place] Mammogram BI-RADS: Category 1: Negative Procedure Note Serafin Rene MD - 09/12/2024 - DAVID SCREENING RIGHT UNILAT DIGITAL W CAD W MARJ UNILATERAL RIGHT DIGITAL SCREENING MAMMOGRAM 3D/2D WITH CAD WITH MEDIOLATERAL OBLIQUE CRANIOCAUDAL: 09/11/2024 The study was acquired using digital technology and interpreted from soft copy. Current study was also evaluated with ICAD version 7.2. 2D digital mammographic views, as well as 3D digital tomosynthesis were performed in the CC and MLO projections. CLINICAL: Routine right breast screening. Patient has no complaints. Previous history of left breast cancer, twice, resulting in mastectomy with KARLA flap. Maternal and paternal aunt had breast cancer. Patient reports 15 pound weight loss since last mammogram. COMPARISONS: Comparison is made to exams dated: 08/28/2023, 08/10/2022, and 11/26/2019 [facility]. BREAST TISSUE:The breasts are almost entirely fatty. FINDINGS: No significant masses, calcifications, or other findings are seen in the breast. There has been no significant interval change. IMPRESSION: NEGATIVE There is no mammographic evidence of malignancy. A 1 year screening mammogram is recommended. A letter will be sent to the patient with these results. The patient will be entered into a reminder system with a target due date of 1 year for her next screening exam. Electronically signed by: Serafin Rene M.D. ll/penrad:09/11/2024 20:30:10 Cracking And Fanning Machine Operator(s): Olga Cook RT(R)(M), [facility] letter sent: Normal Exam Reading location: [place] Mammogram BI-RADS: Category 1: Negative Brad Rivera MD IMG MAMMO ORDERABLES Hoa l Result * COLOGUARD (08/01/2022 7:45 AM CDT) Cologuard Negative Negative [facility] Comment: NEGATIVE TEST RESULT. A negative Cologuard result indicates a low likelihood that a colorectal cancer (CRC) or advanced adenoma (adenomatous polyps with more advanced pre-malignant features) is present. The chance that a person with a negative Cologuard test has a colorectal cancer is less than 1 in 1500 (negative predictive value >99.9%) or has an advanced adenoma is less than 5.3% (negative predictive value 94.7%). These data are based on a prospective cross-sectional study of 10,000 individuals at average risk for colorectal cancer who were screened with both Cologuard and colonoscopy. (Noé Madera al, N Engl J Med 2014;370(14):7287-9269) The normal value (reference range) for this assay is negative. COLOGUARD RE-SCREENING RECOMMENDATION: Periodic colorectal cancer screening is an important part of preventive healthcare for asymptomatic individuals at average risk for colorectal cancer. Following a negative Cologuard result, the [place] Cancer Society and U.S. Multi-Society Task Force screening guidelines recommend a Cologuard re-screening interval of 3 years. References: [place] Cancer Society Guideline for Colorectal Cancer Screening: https://www.cancer.org/cancer/adpap-myqidl-viqalo/xpbhgqdxg-foflngvdm-chjzawg/ acs-recommendations.html.; Armando VALLADARES, Guilherme KONG, Nino RosaK, Colorectal Cancer Screening: Recommendations for Physicians and Patients from the U.S. Multi-Society Task Force on Colorectal Cancer Screening , Am J Gastroenterology 2017; 112:2204-8247. TEST DESCRIPTION: Composite algorithmic analysis of stool DNA-biomarkers with hemoglobin immunoassay. Quantitative values of individual biomarkers are not reportable and are not associated with individual biomarker result reference ranges. Cologuard is intended for colorectal cancer screening of adults of either sex, 45 years or older, who are at average-risk for colorectal cancer (CRC). Cologuard has been approved for use by the U.S. FDA. The performance of Cologuard was established in a cross sectional study of average-risk adults aged 50-84. Cologuard performance in patients ages 45 to 49 years was estimated by sub-group analysis of near-age groups. Colonoscopies performed for a positive result may find as the most clinically significant lesion: colorectal cancer [4.0%], advanced adenoma (including sessile serrated polyps greater than or equal to 1cm diameter) [20%] or non- advanced adenoma [31%]; or no colorectal neoplasia [45%]. These estimates are derived from a prospective cross-sectional screening study of 10,000 individuals at average risk for colorectal cancer who were screened with both Cologuard and colonoscopy. (Noé Madera al, N Engl J Med 2014;370(14):3489-5789.) Cologuard may produce a false negative or false positive result (no colorectal cancer or precancerous polyp present at colonoscopy follow up). A negative Cologuard test result does not guarantee the absence of CRC or advanced adenoma (pre-cancer). The current Cologuard screening interval is every 3 years. ([place] Cancer Society and U.S. Multi-Society Task Force). Cologuard performance data in a 10,000 patient pivotal study using colonoscopy as the reference method can be accessed at the following location: www.SignalFuse.WorkSimple/results. Additional description of the Cologuard test process, warnings and precautions can be found at www.Photofyrd.com. Stool 08/01/2022 7:45 AM CDT 08/02/2022 3:42 PM CDT Brad Rivera MD BODY FLUIDS & STOOLS ORDHarjeet BELTRAN Final Result [facility] [employer] [address] [place] [address], [place] [phone] [facility] [address] [address] * HEPATITIS C ANTIBODY (12/23/2016 11:34 AM CDT) hepatitis C antibody 0.08 <1 S/CO 12/23/2016 11:47 PM CDT [facility] Comment: Signal/Cutoff ratio < 0.79 is Nondetected Signal/Cutoff ratio 0.80-0.99 is Grayzone Signal/Cutoff ratio > 0.99 is Detected Supplemental assays are recommended if signal/cutoff ratio is >/=1.00. Signal/cutoff ratio result >/= 5.00 is 97% predictive of positivity for recombinant immunoblot assay (RIBA) and will be reported to the [place] Department of Public Health as required. 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 PRE-ARREST: Use entire range of life support measures to stabilize the patient. Care Teams Customer Service Rep Relationship Specialty Start Date End Date Brad Rivera MD [address] [facility] [address] [place] [address] PCP - General Family Medicine 01/30/15 Efrem Curtis MD [address] [place] [phone] Consulting Physician Pulmonary Disease 12/13/21 Rose Marie Hoang APRN, PUMP PRESS OPERATOR [address] [place] [address] Nurse Practitioner Advanced Practice Nurse 01/23/23 Mohamud Carrion MD [address] [facility] [address] [place] [id number] Consulting Physician Otolaryngology 11/20/24
--- OUTSIDE RECORDS SUMMARY | 2025-02-27 14:23 | XMS_ITS | Encounter Summary ---
Author Organization [facility] Address [address] [place] [address] Phone Care Team Providers Care Video Producer Name Role Phone Brad Rivera MD Primary Care Provider [phone] Efrem Curtis MD Unavailable Rose Marie Hoang APRN, ENGINEERING SPECIALIST TECHNICIAN Unavailable Mohamud Carrion MD Unavailable [phone] Reason for Visit * Reason Comments Medication Refill Encounter Details Date Type Department Care Team (Late st Contact Info) Description 06/03/2021 Refill [facility] - [facility] [address] [place] [address] Fraooq Sánchez, MAME, ENGINEERING SPECIALIST TECHNICIAN [address] [id number] Medication Refill Social History Tobacco Use Types [...] CDT Gender Identity Female 01/16/2023 10:01 AM 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 Requested Prescriptions Pending Prescriptions Disp Refills allopurinol (ZYLOPRIM) 300 MG Tablet [Pharmacy Med Name: ALLOPURINOL 300MG TABLETS] 90 Tablet 3 Sig: TAKE 1 TABLET BY MOUTH DAILY Gout Agents Protocol Failed - 06/03/2021 2:30 PM Failed - Uric acid on record in past 12 months URIC ACID Date Value Ref Range Status 11/20/2019 9.3 (H) 2.4 - 5.7 mg/dL Final Failed - Serum creatinine on record in past 12 months CREATININE, BLOOD Date Value Ref Range Status 11/20/2019 0.72 0.60 - 1.10 mg/dL Final Passed - Visit with relevant provider in past 12 months or upcoming 90 days Recent Visits Date Type Provider Dept 03/18/21 Telemedicine Farooq Sánchez APRN, CNP [facility] 12/28/20 Telemedicine Farooq Sánchez APRN, CNP [facility] Showing recent visits within past 365 days and meeting all other requirements Future Appointments Date Type Provider Dept 06/17/21 Appointment Brad Rivera MD [facility] Showing future appointments within next 90 days and meeting all other requirements documented in this encounter Plan of Treatment Upcoming Encounters Date Type Department Care Team (Late st Contact Info) Description 05/08/2025 1:45 PM INNER TUBE INSERTER Office Visit [facility] [place] [address] [place] [phone] Mohamud Carrion MD [address] [facility] [address] [place] [address] 07/08/2025 1:30 PM CDT Office Visit [facility] - Family Medicine [facility] [address] [place] [phone] Brad Rivera MD #[address] [address] 07/16/2025 1:00 PM CDT Office Visit [facility] - [facility] [address] [place] [phone] Mohamud Carrion MD #[address] [phone] documented as of this encounter Visit Diagnoses Diagnosis Idiopathic gout, unspecified chronicity, unspecified site documented in this encounter Additional Health Concerns Infection Onset Date Last Indicated Resolved Time COVID - 19 11/10/2021 11/10/2021 11/10/2021 8:55 AM CDT Respiratory Rule Out - RPA 11/10/2021 11/10/2021 0 11/10/2021 3:19 PM CDT Assessment Noted Time PHQ-9 Depression Total Score: 0 07/28/19 19 2:14 PM CDT documented as of this encounter Care Teams Video Producer Relationship Specialty Start Date End Date Brad Rivera MD #[address] [address] PCP - General Family Medicine 01/30/15 Efrem Curtis MD [address] [place] [phone] Consulting Physician Pulmonary Disease 12/13/21 Rose Marie Hoang APRN, ENGINEERING SPECIALIST TECHNICIAN [address] [place] [address] Nurse Practitioner Advanced Practice Nurse 01/23/23 Mohamud Carrion MD [address] [facility] [address] [address] Consulting Physician Otolaryngology 11/20/24 documented as of this encounter
--- OUTSIDE RECORDS SUMMARY | 2025-02-27 14:23 | XMS_ITS | Encounter Summary ---
Author Organization [facility] Address [address] [place] [address] Phone Care Team Providers Care Knot Tier Name Role Phone Brad Rivera MD Primary Care Provider [phone] Efrem Curits MD Unavailable Rose Marie Hoang APRN, AIR INTELLIGENCE SPECIALIST Unavailable Mohamud Carrion MD Unavailable [phone] Reason for Visit * Reason Comments Medication Refill Encounter Details Date Type Department Care Team (Late st Contact Info) Description 12/17/2020 [facility]ill [facility] #2 [place] [phone] Brad Rivera MD #[address] [address] Medication Refill Social History Tobacco Use Types [...] CDT Gender Identity Female 01/16/2023 10:01 AM PREPARATION SUPERVISOR Sexual Orientation Straight 01/16/2023 10 :01 AM PREPARATION SUPERVISOR COVID-19 Exposure Response Date Recorded In the last month, have you been in contact with someone who was confirmed or suspected to have Coronavirus / COVID-19? No / Unsure 11/30/2020 4:47 PM CDT documented as of this encounter Miscellaneous Notes * Telephone Encounter - Anna Persaud RN - 12/17/2020 2:58 PM CDT Per nursing clinical judgement, provider to review and approve the medication(s) order(s) if appropriate. Requested Prescriptions Pending Prescriptions Disp Refills albuterol 108 (90 Base) MCG/ACT Aerosol Solution [Pharmacy Med Name: ALBUTEROL HFA INH(200 PUFFS)18GM] 18 g 1 Sig: INHALE 1 TO 2 PUFFS BY MOUTH EVERY 6 HOURS NEEDED FOR COUGH Short Acting Inhaled Beta-Agonists Protocol Passed - 12/17/2020 1:22 PM Passed - Visit with relevant provider in past 12 months or upcoming 90 days Recent Visits Date Type Provider Dept 01/27/20 Office Visit Farooq Sánchez APN, AIR INTELLIGENCE SPECIALIST [facility] Showing recent visits within past 365 days and meeting all other requirements Future Appointments No visits were found meeting these conditions. Showing future appointments within next 90 days and meeting all other requirements documented in this encounter Plan of Treatment Upcoming Encounters Date Type Department Care Team (Late st Contact Info) Description 05/08/2025 1:45 PM PREPARATION SUPERVISOR [facility] - [facility], Nose & Throat - [place] [address] [place] [address] Mohamud Carrion MD [address] [place] [address] [phone] 07/08/2025 1:30 PM CDT [facility] Visit [facility] - [place] #[address] [place] [address] Brad Rivera MD #2 [place] [facility] [address] [place] [address] 07/16/2025 1:00 PM CDT Office Visit [facility] - [facility] - [place] [address] [place] [address] Mohamud Carrion MD #2 [place] [facility] [address] [place] [phone] documented as of this encounter Visit Diagnoses Not on filedocumented in this encounter Additional Health Concerns Infection Onset Date Last Indicated Resolved Time COVID - 19 11/30/2020 11/30/2020 12/20/2020 12:1 6 AM CDT COVID - 19 04/02/2021 04/02/2021 04/03/2021 10:5 0 PM PREPARATION SUPERVISOR COVID - 19 Confirmed 04/02/2021 04/02/2021 022 12:16 AM PREPARATION SUPERVISOR COVID - 19 11/10/2021 11/10/2021 11/10/2021 8:55 AM CDT Respiratory Rule Out - RPA 11/10/2021 11/10/2021 0 11/10/2021 3:19 PM CDT Assessment Noted Time PHQ-9 Depression Total Score: 0 07/28/19 19 2:14 PM CDT documented as of this encounter Care Teams Knot Tier Relationship Specialty Start Date End Date Brad Rivera MD [address] [address] PCP - General Family Medicine 01/30/15 Efrem Curtis MD #[address] [place] [address] Consulting Physician Pulmonary Disease 12/13/21 Rose Marie Hoang APRN, BALAJI #[address] [place] [address] Nurse Practitioner Advanced Practice Nurse 01/23/23 Mohamud Carrion MD [address] [place] [address] [address] Consulting Physician Otolaryngology 11/20/24 documented as of this encounter
--- OUTSIDE RECORDS SUMMARY | 2025-02-27 14:23 | XMS_ITS | Encounter Summary ---
Author Organization [facility] Address [address] [place] [address] Phone Care Team Providers Care Utility Hand Name Role Phone Brad Rivera MD Primary Care Provider [phone] Efrem Curtis MD Unavailable Rose Marie Hoang APRN, WORSHIP LEADER Unavailable Mohamud Carrion MD Unavailable [phone] Reason for Visit * Reason Comments Medication Refill Encounter Details Date Type Department Care Team (Late st Contact Info) Description 02/06/2022 Refill [facility] #2 [place] [address] Brad Rivera MD #[address] [address] Medication Refill Social History Tobacco Use Types [...] CDT Gender Identity Female 01/16/2023 10:01 AM DIRECTOR OF DIVERSITY AND INCLUSION Sexual Orientation Straight 01/16/2023 10 :01 AM DIRECTOR OF DIVERSITY AND INCLUSION documented as of this encounter Miscellaneous Notes * Telephone Encounter - Doreen Elmore RN - 02/07/2022 9:38 AM DIRECTOR OF DIVERSITY AND INCLUSION Medication failed the protocol, provider to review and approve the medication order if appropriate. Requested Prescriptions Pending Prescriptions Disp Refills albuterol 108 (90 Base) MCG/ACT Aerosol Solution [Pharmacy Med Name: ALBUTEROL HFA INH(200 PUFFS)18GM] 54 g Sig: INHALE 1 TO 2 PUFFS BY MOUTH EVERY 6 HOURS NEEDED FOR COUGH Short Acting Inhaled Beta-Agonists Protocol Passed - 02/06/2022 7:43 PM Passed - Visit with relevant provider in past 12 months or upcoming 90 days Recent Visits Date Type Provider Dept 12/14/21 Office Visit Farooq Sánchez APRN, BALAJI [facility] 11/16/21 Office Visit Farooq Sánchez APRN, BALAJI [facility] 09/28/21 Telemedicine Farooq Sánchez APRN, BALAJI [facility] [place] 03/18/21 Telemedicine Farooq Sánchez APRN, BALAJI [facility] Showing recent visits within past 365 days and meeting all other requirements Future Appointments No visits were found meeting these conditions. Showing future appointments within next 90 days and meeting all other requirements CTOR OF DIVERSITY AND INCLUSION documented in this encounter Plan of Treatment Upcoming Encounters Date Type Department Care Team (Late st Contact Info) Description 05/08/2025 1:45 PM DIRECTOR OF DIVERSITY AND INCLUSION Office [facility] - Ear, Nose & Th[facility]at - [place] [address] [place] [phone] Mohamud Carrion MD [address] [place] [address] [place] [address] 07/08/2025 1:30 PM CDT Office Visit [facility] - Family Medicine - [place] #2 [place] [address] Brad Rivera MD #[address] [address] 07/16/2025 1:00 PM CDT Office Visit [facility] Medical [facility] - Ear, Nose & Throat [facility] #2 [facility] [address] [facility] [address] Mohamud Carrion MD #2 [facility] [address] [phone] documented as of this encounter Visit Diagnoses Not on filedocumented in this encounter Additional Health Concerns Assessment Noted Time PHQ-9 Depression Total Score: 0 11/17/19 22 12:00 PM CDT documented as of this encounter Care Teams Utility Hand Relationship Specialty Start Date End Date Brad Rivera MD [address] [address] PCP - General Family Medicine 01/30/15 Efrem Curtis MD #[address] [place] [address] Consulting Physician Pulmonary Disease 12/13/21 Rose Marie Hoang APRN, WORSHIP LEADER #2 [place] [address] Nurse Practitioner Advanced Practice Nurse 01/23/23 Mohamud Carrion MD #2 [facility] [address] [phone] Consulting Physician Otolaryngology 11/20/24 documented as of this encounter
--- OUTSIDE RECORDS SUMMARY | 2025-02-27 14:23 | XMS_ITS | Encounter Summary ---
Author Organization [facility] Address [address] [place] [address] Phone Care Team Providers Care Garbage Collector Supervisor Name Role Phone Brad Rivera MD Primary Care Provider [phone] Efrem Curtis MD Unavailable Rose Marie Hoang APRN, RESIDENTIAL SALES EXECUTIVE Unavailable Mohamud Carrion MD Unavailable [phone] Reason for Visit * Reason Comments Medication Refill Encounter Details Date Type Department Care Team (Late st Contact Info) Description 03/17/2021 Refill [facility] #2 [place] [address] Brad Rivera MD #[address] [address] Medication Refill Social History Tobacco Use Types [...] CDT Gender Identity Female 01/16/2023 10:01 AM TELEVISION OPERATOR Sexual Orientation Straight 01/16/2023 10 :01 AM TELEVISION OPERATOR COVID-19 Exposure Response Date Recorded In the last month, have you been in contact with someone who was confirmed or suspected to have Coronavirus / COVID-19? No / Unsure 03/20/2021 2:43 PM TELEVISION OPERATOR documented as of this encounter Miscellaneous Notes * Telephone Encounter - Katina Palm RN - 03/17/2021 12:03 PM CST Medication failed the protocol, provider to review and approve the medication order if appropriate. Requested Prescriptions Pending Prescriptions Disp Refills atorvastatin (LIPITOR) 20 MG Tablet [Pharmacy Med Name: ATORVASTATIN 20MG TABLETS] 90 Tablet 3 Sig: TAKE 1 TABLET BY MOUTH DAILY Hmg CoA Reductase Inhibitors Protocol Failed - 03/17/2021 3:10 AM Failed - Lipid panel in past 12 months LDL Date Value Ref Range Status 11/20/2019 101 5 - 130 mg/dL Final HDL CHOLESTEROL Date Value Ref Range Status 11/20/2019 53.4 >40 mg/dL Final CHOLESTEROL Date Value Ref Range Status 11/20/2019 195 <=200 mg/dL Final TRIGLYCERIDES Date Value Ref Range Status 11/20/2019 201 (H) <150 mg/dL Final VLDL Date Value Ref Range Status 11/20/2019 40 5 - 55 mg/dL Final CHOL/HDL RATIO Date Value Ref Range Status 11/20/2019 3.7 0.0 - 4.4 Final NON-HDL CHOLESTEROL Date Value Ref Range Status 11/20/2019 141.6 (H) <130 mg/dL Final Passed - Visit with relevant provider in past 12 months or upcoming 90 days Recent Visits Date Type Provider Dept 12/28/20 Telemedicine Farooq Sánchez APRN, BALAJI [place] Showing recent visits within past 365 days and meeting all other requirements Future Appointments Date Type Provider Dept 03/18/21 Appointment Farooq Sánchez APRN, BALAJI [facility] Showing future appointments within next 90 days and meeting all other requirements VISION OPERATOR documented in this encounter Plan of Treatment Upcoming Encounters Date Type Department Care Team (Late st Contact Info) Description 05/08/2025 1:45 PM TELEVISION OPERATOR Office Visit [facility] Ear, Nose & Throat - [place] [address] [place] [address] Mohamud Carrion MD #[address] [place] [facility] [address] [place] [address] 07/08/2025 1:30 PM CDT [facility] - [place] #[address] [place] [address] Brad Rivera MD #[address] [facility] [address] [place] [address] 07/16/2025 1:00 PM CDT Office Visit [facility] Ear, Nose & Throat - [place] #[address] [place] [address] Mohamud Carrion MD [address] [place] [address] [place] [address] documented as of this encounter Visit Diagnoses Not on filedocumented in this encounter Additional Health Concerns Infection Onset Date Last Indicated Resolved Time COVID - 19 04/02/2021 04/02/2021 04/03/2021 10:5 0 PM TELEVISION OPERATOR COVID - 19 Confirmed 04/02/2021 04/02/2021 022 12:16 AM TELEVISION OPERATOR COVID - 19 11/10/2021 11/10/2021 11/10/2021 8:55 AM CDT Respiratory Rule Out - RPA 11/10/2021 11/10/2021 0 11/10/2021 3:19 PM CDT Assessment Noted Time PHQ-9 Depression Total Score: 0 07/28/19 19 2:14 PM CDT documented as of this encounter Care Teams Garbage Collector Supervisor Relationship Specialty Start Date End Date Brad Rivera MD [facility] [address] [place] [address] PCP - General Family Medicine 01/30/15 Efrem Curtis MD #2 [place] [address] Consulting Physician Pulmonary Disease 12/13/21 Rose Marie Hoang APRN, RESIDENTIAL SALES EXECUTIVE #2 [place] [address] Nurse Practitioner Advanced Practice Nurse 01/23/23 Mohamud Carrion MD #2 [facility] [place] [address] [phone] Consulting Physician Otolaryngology 11/20/24 documented as of this encounter
--- OUTSIDE RECORDS SUMMARY | 2025-02-27 14:23 | XMS_ITS | Encounter Summary ---
Author Organization [facility] Address [address] [place] [address] Phone Care Team Providers Care Manager Of Drilling Name Role Phone Brad Rivera MD Primary Care Provider [phone] Efrem Curtis MD Unavailable Rose Marie Hoang APRN, DRIVEMATIC MACHINE OPERATOR Unavailable Mohamud Carrion MD Unavailable [phone] Reason for Visit * Reason Comments Medication Refill Encounter Details Date Type Department Care Team (Late st Contact Info) Description 10/20/2021 Refill [facility] #2 [place] [phone] Brad Rivera MD #[address] [address] Medication Refill Social History Tobacco Use Types [...] CDT Gender Identity Female 01/16/2023 10:01 AM ELEMENTARY SCHOOL SCIENCE TEACHER Sexual Orientation Straight 01/16/2023 10 :01 AM ELEMENTARY SCHOOL SCIENCE TEACHER COVID-19 Exposure Response Date Recorded In the last 10 days, have yo u been in contact with someone who was confirmed or suspected to have Coronavirus/COVID-19? No / Unsure 10/20/2021 9:46 AM CDT documented as of this encounter Plan of Treatment Upcoming Encounters Date Type Department Care Team (Late st Contact Info) Description 05/08/2025 1:45 PM ELEMENTARY SCHOOL SCIENCE TEACHER Office Visit [facility] - Ear, Nose & Throat - [place] #2 [place] [address] Mohamud Carrion MD #[address] [address] 07/08/2025 1:30 PM CDT Office Visit [facility] Medical [facility] - Family Medicine - [place] #2 [place] [address] Brad Rivera MD #2 [facility] [address] [place] [address] 07/16/2025 1:00 PM CDT Office Visit [facility] Ear, Nose & Throat - [place] #2 [place] [address] Mohamud Carrion MD #[address] [address] documented as of this encounter Visit Diagnoses [...] documented as of this encounter Care Teams Manager Of Drilling Relationship Specialty Start Date End Date Brad Rivera MD #2 [facility] [address] [place] [address] PCP - General Family Medicine 01/30/15 Efrem Curtis MD #2 [place] [address] Consulting Physician Pulmonary Disease 12/13/21 Rose Marie Hoang APRN, DRIVEMATIC MACHINE OPERATOR #2 [place] [address] Nurse Practitioner Advanced Practice Nurse 01/23/23 Mohamud Carrion MD #[address] [phone] Consulting Physician Otolaryngology 11/20/24 documented as of this encounter
--- OUTSIDE RECORDS SUMMARY | 2025-02-27 14:23 | XMS_ITS | Encounter Summary ---
Author Organization [facility] Address [address] [place] [address] Phone Care Team Providers Care Locomotive Crane Operator Name Role Phone Brad Rievra MD Primary Care Provider [phone] Efrem Curtis MD Unavailable Rose Marie Hoang APRN, BALAJI Unavailable Mohamud Carrion MD Unavailable [phone] Reason for Visit * Reason Comments Medication Refill Encounter Details Date Type Department Care Team (Late st Contact Info) Description 01/31/2021 Refill [facility] [address] [place] [address] Brad Rivera MD #[address] [address] Medication Refill Social History Tobacco Use Types [...] CDT Gender Identity Female 01/16/2023 10:01 AM ASSISTANT CASE MANAGER Sexual Orientation Straight 01/16/2023 10 :01 AM ASSISTANT CASE MANAGER documented as of this encounter Miscellaneous Notes * Telephone Encounter - Katina Palm RN - 02/01/2021 11:53 AM CST Name from pharmacy: MONTELUKAST 10MG TABLETS Will file in chart as: montelukast (SINGULAIR) 10 MG Tablet The original prescription was discontinued on 12/28/2020 by Farooq Sánchez APRN, MEASURER MACHINE STANT CASE MANAGER documented in this encounter Plan of Treatment Upcoming Encounters Date Type Department Care Team (Late st Contact Info) Description 05/08/2025 1:45 PM ASSISTANT CASE MANAGER Office Visit [facility] Medical [facility] - Ear, Nose & Throat - [place] #2 [place] [address] Mohamud Carrion MD #[address] [address] 07/08/2025 1:30 PM CDT Office Visit [facility] Medical [facility] - Family Medicine - [place] #2 [place] [address] Brad Rivera MD #2 [facility] [address] [place] [address] 07/16/2025 1:00 PM CDT Office Visit [facility] - Ear, Nose & Throat - [place] #2 [place] [address] Mohamud Carrion MD #[address] [address] documented as of this encounter Visit Diagnoses Not on filedocumented in this encounter Additional Health Concerns Infection Onset Date Last Indicated Resolved Time COVID - 19 04/02/2021 04/02/2021 04/03/2021 10:5 0 PM ASSISTANT CASE MANAGER COVID - 19 Confirmed 04/02/2021 04/02/2021 022 12:16 AM ASSISTANT CASE MANAGER COVID - 19 11/10/2021 11/10/2021 11/10/2021 8:55 AM CDT Respiratory Rule Out - RPA 11/10/2021 11/10/2021 0 11/10/2021 3:19 PM CDT Assessment Noted Time PHQ-9 Depression Total Score: 0 07/28/19 19 2:14 PM CDT documented as of this encounter Care Teams Locomotive Crane Operator Relationship Specialty Start Date End Date Brad Rivera MD #2 [facility] [address] [place] [address] PCP - General Family Medicine 01/30/15 Efrem Curtis MD #2 [place] [address] Consulting Physician Pulmonary Disease 12/13/21 Rose Marie Hoang APRN, MEASURER MACHINE #2 [place] [address] Nurse Practitioner Advanced Practice Nurse 01/23/23 Mohamud Carrion MD #2 [facility] [address] [place] [address] Consulting Physician Otolaryngology 11/20/24 documented as of this encounter
--- OUTSIDE RECORDS SUMMARY | 2025-02-27 14:23 | XMS_ITS | Encounter Summary ---
Author Organization [facility] Address [address] [place] [address] Phone Care Team Providers Care Mill Tender Warm Up Name Role Phone Brad Rivera MD Primary Care Provider [phone] Efrem Curtis MD Unavailable Rose Marie Hoang APRN, FREIGHT CAR CLEANER Unavailable Mohamud Carrion MD Unavailable [phone] Reason for Visit * Reason Comments Medication Refill Encounter Details Date Type Department Care Team (Late st Contact Info) Description 10/04/2021 Refill [facility] #2 [place] [address] Farooq Sánchez, MAME, FREIGHT CAR CLEANER #[address] [address] Medication Refill Social History Tobacco Use Types [...] CDT Gender Identity Female 01/16/2023 10:01 AM CUSTODIAL OPERATIONS MANAGER Sexual Orientation Straight 01/16/2023 10 :01 AM CUSTODIAL OPERATIONS MANAGER COVID-19 Exposure Response Date Recorded In the last 10 days, have yo u been in contact with someone who was confirmed or suspected to have Coronavirus/COVID-19? No / Unsure 09/28/2021 2:00 PM CDT documented as of this encounter Miscellaneous Notes * Telephone Encounter - Ema Miles RN - 10/05/2021 1:34 PM CDT Medication failed the protocol, provider to review and approve the medication order if appropriate. Requested Prescriptions Pending Prescriptions Disp Refills meloxicam (MOBIC) 15 MG Tablet [Pharmacy Med Name: MELOXICAM 15MG TABLETS] 90 Tablet 1 Sig: Take 1 Tablet by mouth daily. NSAIDs Protocol Failed - 10/04/2021 10:04 PM Failed - Normal serum creatinine in past 12 months CREATININE, BLOOD Date Value Ref Range Status 11/20/2019 0.72 0.60 - 1.10 mg/dL Final Failed - Not delegated, patient not between 1 and 65 years of age Failed - AST less than 55 or ALT less than 90 in past 12 months SGOT (AST) Date Value Ref Range Status 11/20/2019 15 <=32 U/L Final SGPT (ALT) Date Value Ref Range Status 11/20/2019 14 <=33 U/L Final Failed - HGB greater than 10 or HCT greater than 30 in past 12 months HEMOGLOBIN (HGB) Date Value Ref Range Status 11/20/2019 13.3 12.0 - 15.8 g/dL Final HEMATOCRIT (HCT) Date Value Ref Range Status 11/20/2019 40.5 36.0 - 47.0 % Final Passed - Visit with relevant provider in past 12 months or upcoming 90 days Recent Visits Date Type Provider Dept 09/28/21 Telemedicine Farooq Sánchez APRN, [facility] 03/18/21 Telemedicine Farooq Sánchez APRN, [facility] [place] 12/28/20 Telemedicine Farooq Sánchez APRN, BALAJI [place] Showing recent visits within past 365 days and meeting all other requirements Future Appointments No visits were found meeting these conditions. Showing future appointments within next 90 days and meeting all other requirements Passed - No matching NSAID med order in past 45 days No matching medication orders between 08/21/2021 1:34 PM and 10/05/2021 1:34 PM documented in this encounter Plan of Treatment Upcoming Encounters Date Type Department Care Team (Late st Contact Info) Description 05/08/2025 1:45 PM CUSTODIAL OPERATIONS MANAGER Office Visit [facility] Ear, Nose & Throat - [place] #2 [place] [address] Mohamud Carrion MD #[address] [address] 07/08/2025 1:30 PM CDT Office Visit [facility] Family Medicine - [place] #2 [place] [address] Brad Rivera MD #[address] [address] 07/16/2025 1:00 PM CDT Office Visit [facility] Ear, Nose & Throat - [place] #2 [place] [address] Mohamud Carrion MD #[address] [address] documented as of this encounter Visit Diagnoses Diagnosis Spondylosis of lumbar spine documented in this encounter Additional Health Concerns Infection Onset Date Last Indicated Resolved Time COVID - 19 11/10/2021 11/10/2021 11/10/2021 8:55 AM CDT Respiratory Rule Out - RPA 11/10/2021 11/10/2021 0 11/10/2021 3:19 PM CDT Assessment Noted Time PHQ-9 Depression Total Score: 0 07/28/19 19 2:14 PM CDT documented as of this encounter Care Teams Mill Tender Warm Up Relationship Specialty Start Date End Date Brad Rivera MD #2 [facility] [address] [place] [address] PCP - General Family Medicine 01/30/15 Efrem Curtis MD #2 [place] [address] Consulting Physician Pulmonary Disease 12/13/21 Rose Marie Hoang APRN, FREIGHT CAR CLEANER #2 [place] [address] Nurse Practitioner Advanced Practice Nurse 01/23/23 Mohamud Carrion MD #[address] [phone] Consulting Physician Otolaryngology 11/20/24 documented as of this encounter
== END 2025-02-27 13:36 | disposition left against medical advice (07) ==
PROVIDERS: PCP Family Medicine
DX: Z53.21 Procedure and treatment not carried out due to patient leaving prior to being seen by health care provider (principal)
CPT/HCPCS: 99199